=== PATIENT | female | born 1990 | race Caucasian/White ===

== ENCOUNTER 2019-10-09 07:56 | Outpatient (CLI) | payer BC, SELFPAY ==
--- NOTE | ~2019-10-09 | US_ITS ---
US right upper quadrant INDICATION: Epigastric pain PROCEDURE: Realtime right upper abdominal ultrasound. COMPARISON: No prior studies for comparison. FINDINGS: The pancreas is normal without focal mass or pancreatic ductal dilation. Liver echotexture is normal without focal mass or intrahepatic biliary dilatation. There is normal directional flow i n the portal vein. There is a 6 mm gallbladder polyp. Common bile duct measures 2.5 mm. No sonographic Srinivasan's sign. IMPRESSION: 1: Gallbladder polyp measuring 6 mm. Reviewed, dictated and finalized at location A.
== END 2019-10-09 07:57 | disposition home or self-care (01) ==
PROVIDERS: PCP Family Medicine; Visit Provider Family Medicine
DX: R10.9 Unspecified abdominal pain (principal); K82.4 Cholesterolosis of gallbladder
CPT/HCPCS: 76705

== ENCOUNTER 2019-10-29 01:56 | Outpatient (CLI) | payer BC, SELFPAY ==
[2019-10-29 21:41] LABS: SARS-CoV-2 RNA PCR Negative
== END 2019-10-29 01:57 | disposition home or self-care (01) ==
LOC: ANHCOVIDDT 01:56
PROVIDERS: PCP Family Medicine; Visit Provider Internal Medicine Gastroenterology
DX: Z01.818 Encounter for other preprocedural examination (principal); Z11.59 Encounter for screening for other viral diseases
CPT/HCPCS: 87635; C9803; U0003

== ENCOUNTER 2019-11-01 03:13 | Day surgery (SDC) | payer BC, SELFPAY ==
[2019-10-25 12:54] VITALS: BMI 24.5
[2019-11-01 10:47] VITALS: BP 102/59; PULSE 64; RESP 18; TEMP 36.8; O2SAT 100; BMI 25.2
[2019-11-01] MEDS: LACTATED RINGERS 1,000 ML 150 ML IV CONT (10:56)
--- NOTE | 2019-11-01 10:58 | SUR.PREOP ---
pt notified of delay in procedure start time.
--- NOTE | 2019-11-01 11:14 | WPDANESEPPF ---
Anes - Initial Pre Proc Eval Procedure: Operation Date: 11/01/19 11:30 Proposed Procedures p Esophagogastroduodenoscopy - Sixto Allison MD Date/Time: 11/01/19 11:14 Surgeon: Sixto Allison MD Pre Op Diagnosis: Abdominal Pain Patient Data Age: 29 Gender: F Height: 5 ft 2 in Weight: 62.5 kg Last Vital Signs Temp 36.8 C 11/01/19 10:47 Pulse 64 11/01/19 10:47 Resp 18 11/01/19 10:47 BP 102/59 L 11/01/19 10:47 Pulse Ox 100 11/01/19 10:47 Allergies Allergy/AdvReac Type Severity Reaction Status Date / Time No Known Allergies Allergy Verified 11/01/19 10:40 Home Medications Medication Instructions Recorded Confirmed Type No Home Medications 10/25/19 10/25/19 History Patient hx anesthesia problems: none Family hx anesthesia problems: none [facility] Past Medical History Medical History Bloating delivery delivered 2016 Dyspepsia Social History Social History Smoking status: Never smoker Alcohol intake: current Drinks per week: 1 Substance use: never Substance use type: does not use Anes - Eval Final PreProcedure Day of Procedure 11/01/19 11:14 Patient weight: normal Heart: regular rate and rhythm Lungs: clear to auscultation Airway: Mallampati scale class 1 Neurological: alert and oriented Last oral intake: >/= 8 hours ASA classification: I Emergent: no Anesthetic plan: proceed Anesthesia type and monitoring: general GIVS and standard monitoring Informed Consent: The patient's anesthetic plan and its attendant risks and benefits were discussed with the patient/family/POA. Questions were solicited and answers provided to the satisfaction of the patient/family/POA.
--- NOTE | 2019-11-01 11:48 | WPDHPUPDATE1 ---
History and Physical Update Update Date/Time: 11/01/19 11:48 History and Physical has been reviewed, including an updated exam of the patient. There are NO changes in the patient's condition. Risks, benefits, and alternatives have been discussed and questions answered. Patient agrees to proceed with procedure.
[2019-11-01] MEDS: BENZOCAINE (*SP) 60 ML SPRAY CAN (HURRICAINE) 1 SPRAY MUCOUS MEM (11:51)
[2019-11-01 12:01] VITALS: BP 101/56; PULSE 74; RESP 15; O2SAT 98
[2019-11-01 12:11] VITALS: BP 106/57; PULSE 74; RESP 15; O2SAT 98
[2019-11-01 12:21] VITALS: BP 108/74; PULSE 74; RESP 15; O2SAT 98
== END 2019-11-01 12:44 | disposition home or self-care (01) ==
PROVIDERS: PCP Family Medicine; Visit Provider Internal Medicine Gastroenterology
PROC: 0DJ08ZZ Inspection of Upper Intestinal Tract, Via Natural or Artificial Opening Endoscopic (ICD-10-PCS; CPT 43235; principal; 2019-11-01 11:30)
DX: R10.13 Epigastric pain (principal); R14.0 Abdominal distension (gaseous); R14.2 Eructation
CPT/HCPCS: 43239; 88305; J2704; J7120

== ENCOUNTER 2022-10-04 09:40 | Emergency (ER) | payer BC, SELFPAY ==
[2022-10-04 09:48] VITALS: BP 117/70; PULSE 90; RESP 14; TEMP 36.7; O2SAT 100
[2022-10-04 10:10] LABS: Basophils Absolute Auto 0.1 K/mm3 (0.0-0.1); Basophils Percent Auto 1.6 % (0.2-1.2); Eosinophils Percent Auto 0.5 % (0-4.4); Hematocrit 28.5 % (37.0-47.0); Hemoglobin 7.2 g/dL (12.0-15.0); Immature Granulocyte Absolute 0.01 K/mm3 (0.00-0.031); Immature Granulocyte Percent A 0.3 % (0-0.5); Immature Platelet Fraction Pct 5.6 % (0.9-11.2); Lymphocytes Percent Auto 25.9 % (18.3-44.2); Mean Corpuscular HGB Conc 25.3 g/dl (32-36); Mean Corpuscular Hemoglobin 15.7 pg (26-34); Mean Corpuscular Volume 62.2 fl (80-100); Mean Platelet Volume 10.4 fl (7.4-10.4); Monocytes Absolute Auto 0.5 K/mm3 (0.1-0.6); Neutrophils Absolute Auto 2.2 K/mm3 (1.3-6.7); Neutrophils Percent Auto 57.7 % (45.5-73.1); Platelet Count Result 273 k/mm3 (150-375); Red Blood Count 4.58 M/mm3 (4.2-5.4); Red Cell Distribution Width 18.7 % (11.5-14.5); White Blood Count 3.9 K/mm3 (4.5-10.0)
[2022-10-04 10:20] LABS: Prothrombin Time 13.3 Seconds (11.1-14.7)
--- NOTE | 2022-10-04 10:20 | ED.GENADULT ---
HPI - General Adult General Chief complaint: Recheck/Abnormal Lab/Rx Stated complaint: low hgb Time Seen by Provider: 10/04/22 09:45 History of Present Illness HPI narrative: 32-year-old female presented the emergency department for evaluation of anemia. Patient does have a prior work-up for this anemia, is thought to be due to her heavy menstrual cycle and patient is having follow-up with Dr. Silvia Mendiola. Patient had outpatient labs and was found to have a hemoglobin of 6.5. Patient is symptomatic and does have increased exertional fatigue and generalized weakness. Patient is no longer having active bleeding. Patient is scheduled to start oral control to help regulate her menstrual cycle. Related Data Home Medications Medication Instructions Recorded Confirmed vits 75-iron 28 mg-folic pkg PO 10/11/21 09/19/22 acid 800 mcg-omega-3 oral combo pack (One A Day Women's DHA) Allergies Allergy/AdvReac Type Severity Reaction Status Date / Time No Known Allergies Allergy Verified 10/04/22 10:01 Review of Systems Review of Systems: All systems reviewed & are unremarkable except as noted in HPI and below PMFSH Past Medical History Medical History (Updated 10/04/22 @ 14:34 by Parveen Kramer MD) Bloating delivery delivered 2016 Dyspepsia Social History Social History (Updated 09/19/22 @ 09:02 by Magaly Calhoun MA) Smoking status: Never smoker Alcohol intake: current Drinks per week: 1 Substance use: never Substance use type: does not use Lack of Transportation: No Lack of Food: Never True Current Housing: I Have Housing Concerned About Future Housing: No Difficulty Paying Gas/Electric Bills: No Difficulty Paying for Meds: No Currently Unemployed: No Education: Associate Degree Difficulty w/ Childcare or Family Care: No Living arrangements: with family 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 Gender identity (if verbalized by the patient): Female Sexual Orientation (if Verbalized by the Patient): Straight or Heterosexual Exam Narrative: APPEARANCE: Well appearing, no pain, no distress, well-nourished. HEAD: normocephalic, atraumatic. EYES: PERRLA/EOMI, conjunctivae clear. NOSE: Normal no drainage NECK: Supple. No adenopathy, no masses. RESPIRATORY: Airway patent, respirations nonlabored. Clear to auscultation bilaterally, no rales, rhonchi, wheezing. CARDIOVASCULAR: Regular rate and rhythm without murmurs rubs or gallops. ABDOMINAL: Soft, nontender, nondistended, normal bowel sounds MUSCULOSKELETAL: Moves all extremities. Strength/ROM intact, No edema, No calf tenderness. NEURO: Alert. Cranial nerves II through XII intact. Grossly intact SKIN: Warm, dry. Normal Color Course Course Emergency Course: 32-year-old female presented ED for evaluation of increased generalized weakness and anemia. Patient will be treated with 2 units of packed red blood cells. Patient was updated on the results of her labs and plan for treatment. Patient is being started on control by her TUBE CUTTER. Patient was well-appearing at time of discharge. Vital Signs Vital signs: Vital Signs Temperature 98.0 F 10/04/22 09:48 Pulse Rate 90 10/04/22 09:48 Respiratory Rate 14 10/04/22 09:48 Blood Pressure 117/70 10/04/22 09:48 Pulse Oximetry 100 10/04/22 09:48 Oxygen Delivery Room Air 10/04/22 09:48 Temperature 98.6 F 10/04/22 14:53 Pulse Rate 76 10/04/22 14:53 Respiratory Rate 14 10/04/22 14:53 Blood Pressure 103/67 10/04/22 14:53 Pulse Oximetry 100 10/04/22 14:53 Oxygen Delivery Room Air 10/04/22 09:48 Medical Decision Making Vital Signs Vital Signs: Vital Signs Temperature 98.0 F 10/04/22 09:48 Pulse Rate 90 10/04/22 09:48 Respiratory Rate 14 10/04/22 09:48 Blood Pressure 117/70 10/04/22 09:48 Pulse Oximetry 100
[2022-10-04 10:21] LABS: Partial Thromboplastin Time 30.8 SECONDS (22.3-36.8)
[2022-10-04 10:25] LABS: Alanine Aminotransferase 15 U/L (6-35); Alkaline Phosphatase 63 U/L (38-126); Anion Gap 8 mmol/L (8-16); Aspartate Amino Transferase 22 U/L (14-36); Bilirubin,Total 0.5 mg/dL (0.2-1.3); Blood Urea Nitrogen 9 mg/dL (7-17); Calcium 9.1 mg/dL (8.4-10.2); Carbon Dioxide 26 mmol/L (22-30); Chloride 105 mmol/L (98-107); Estimated CRCL calculation 106 ml/min; Estimated Glomerular Filt Rate > 60; Glucose 94 mg/dL (65-110); Potassium 3.9 mmol/L (3.4-5.0); Sodium 139 mmol/L (137-145)
[2022-10-04 10:40] LABS: Anisocytosis 1+ (NORMAL); Hypochromasia 2+ (NORMAL); Microcytosis 2+ (NORMAL); Ovalocytes 1+ (NORMAL); Platelet Estimate Adequate (Adequate); Schistocytes None Seen (NORMAL)
[2022-10-04 12:34] VITALS: BP 103/63; PULSE 78; RESP 15; TEMP 36.9; O2SAT 100
[2022-10-04] MEDS: SODIUM CHLORIDE 0.9% IV 250 ML 30 ML IV CONT (12:35)
[2022-10-04 12:50] VITALS: BP 110/70; PULSE 78; RESP 14; TEMP 36.7; O2SAT 100
[2022-10-04 13:54] VITALS: BP 110/71; PULSE 91; RESP 17; TEMP 36.9; O2SAT 100
[2022-10-04 14:09] VITALS: BP 104/57; PULSE 73; RESP 15; TEMP 37; O2SAT 100
[2022-10-04 14:53] VITALS: BP 103/67; PULSE 76; RESP 14; TEMP 37; O2SAT 100
== END 2022-10-04 15:22 | disposition home or self-care (01) ==
PROVIDERS: Emergency Provider Emergency Medicine; PCP Family Medicine
DX: D64.9 Anemia, unspecified (principal)
CPT/HCPCS: 36415; 36430; 80053; 85025; 85055; 85610; 85730; 86850; 86900; 86901; 86923; 96360; 96361; 99285; J7050; P9016

== ENCOUNTER 2022-10-05 12:46 | Emergency (ER) | payer BC, SELFPAY ==
[2022-10-05 13:04] VITALS: BP 118/63; PULSE 70; RESP 18; TEMP 36.6; O2SAT 100
[2022-10-05 13:29] LABS: Basophils Absolute Auto 0.1 K/mm3 (0.0-0.1); Basophils Percent Auto 1.1 % (0.2-1.2); Eosinophils Absolute Auto 0.1 K/mm3 (0-0.3); Eosinophils Percent Auto 1.5 % (0-4.4); Hematocrit 35.3 % (37.0-47.0); Immature Platelet Fraction Pct 5.8 % (0.9-11.2); Lymphocytes Absolute Auto 1.65 K/mm3 (0.9-3.2); Lymphocytes Percent Auto 30.3 % (18.3-44.2); Mean Corpuscular HGB Conc 28.3 g/dl (32-36); Mean Corpuscular Hemoglobin 19.2 pg (26-34); Mean Corpuscular Volume 67.8 fl (80-100); Mean Platelet Volume 10.4 fl (7.4-10.4); Monocytes Absolute Auto 0.6 K/mm3 (0.1-0.6); Monocytes Percent Auto 10.7 % (2.6-8.5); Neutrophils Absolute Auto 3.1 K/mm3 (1.3-6.7); Neutrophils Percent Auto 56.4 % (45.5-73.1); Platelet Count Result 247 k/mm3 (150-375); Red Blood Count 5.21 M/mm3 (4.2-5.4); Red Cell Distribution Width 23.5 % (11.5-14.5); White Blood Count 5.4 K/mm3 (4.5-10.0)
[2022-10-05 13:43] LABS: Alanine Aminotransferase 13 U/L (6-35); Albumin Level 4.5 g/dL (3.5-5.1); Alkaline Phosphatase 58 U/L (38-126); Anion Gap 8 mmol/L (8-16); Aspartate Amino Transferase 18 U/L (14-36); Bilirubin,Total 0.4 mg/dL (0.2-1.3); Blood Urea Nitrogen 10 mg/dL (7-17); Calcium 8.9 mg/dL (8.4-10.2); Carbon Dioxide 24 mmol/L (22-30); Chloride 107 mmol/L (98-107); Estimated CRCL calculation 106 ml/min; Estimated Glomerular Filt Rate > 60; Glucose 103 mg/dL (65-110); Lipase 45 U/L (23-300); Potassium 3.8 mmol/L (3.4-5.0); Sodium 139 mmol/L (137-145)
[2022-10-05 13:45] LABS: Anisocytosis 3+ (NORMAL); Hypochromasia 1+ (NORMAL); Microcytosis 1+ (NORMAL); Platelet Estimate Adequate (Adequate); Schistocytes None Seen (NORMAL)
[2022-10-05 14:32] LABS: Creatine Kinase 45 U/L (30-135)
--- NOTE | 2022-10-05 15:49 | ED.ABDPAIN ---
HPI - Abdominal Pain General Chief Complaint: Abdominal Pain Stated Complaint: abd pain Time Seen by Provider: 10/05/22 15:33 History of Present Illness HPI narrative: Patient is a 32-year-old female here for evaluation of cramping in her muscles x4 hours. Patient states that she woke up with a cramping sensation concentrated in her abs and low back. She denies any vigorous exercise recently, however she was in the ER yesterday and received 2 units of blood for a low hemoglobin. She has had no fevers, shortness of breath, leg swelling or redness, nausea or vomiting, diarrhea or constipation. Related Data Home Medications Medication Instructions Recorded Confirmed vits 75-iron 28 mg-folic pkg PO 10/11/21 09/19/22 acid 800 mcg-omega-3 oral combo pack (One A Day Women's DHA) Allergies Allergy/AdvReac Type Severity Reaction Status Date / Time No Known Allergies Allergy Verified 10/04/22 10:01 Review of Systems Review of Systems: Gen.: Denies fevers or chills Eyes: Denies eye pain or visual change ENT: Denies congestion Respiratory: Denies shortness of breath or cough CV: Denies chest pain or palpitations GI: Denies abdominal pain nausea, emesis or diarrhea denies burning, urgency, frequency or hematuria Musculoskeletal: Reports muscle pain Neuro: Denies numbness, tingling, weakness or focal weakness Skin: Denies rash Except as documented, all other systems reviewed and negative [facility] Past Medical History Medical History Bloating delivery delivered 2016 Dyspepsia Social History Social History (Updated 09/19/22 @ 09:02 by Magaly Calhoun MA) Smoking status: Never smoker Alcohol intake: current Drinks per week: 1 Substance use: never Substance use type: does not use Lack of Transportation: No Lack of Food: Never True Current Housing: I Have Housing Concerned About Future Housing: No Difficulty Paying Gas/Electric Bills: No Difficulty Paying for Meds: No Currently Unemployed: No Education: Associate Degree Difficulty w/ Childcare or Family Care: No Living arrangements: with family 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 CARDIOVASCULAR: Regular rate and rhythm without murmurs rubs or gallops. ABDOMINAL: Soft, nontender, nondistended, no rebound or guarding MUSCULOSKELETAl: Moves all extremities. No clubbing, cyanosis or edema. NEURO: Awake and alert. Following commands, speech normal, no focal deficits SKIN:: Warm, dry. No rashes lesions or abrasions PSYCHIATRIC: Normal affect/mood, Course Vital Signs Vital signs: Vital Signs Temperature 97.9 F 10/05/22 13:04 Pulse Rate 70 10/05/22 13:04 Respiratory Rate 18 10/05/22 13:04 Blood Pressure 118/63 10/05/22 13:04 Pulse Oximetry 100 10/05/22 13:04 Oxygen Delivery Room Air 10/05/22 13:04 Temperature 97.9 F 10/05/22 13:04 Pulse Rate 75 10/05/22 15:55 Respiratory Rate 18 10/05/22 15:55 Blood Pressure 116/75 10/05/22 15:55 Pulse Oximetry 100 10/05/22 15:55 Oxygen Delivery Room Air 10/05/22 13:04 MDM - Abdominal Pain MDM Narrative Medical decision making narrative: 32-year-old female here for evaluation of diffuse muscle cramping after receiving 2 units of blood 36 hours ago for low hemoglobin. Patient not actively bleeding, no signs of transfusion reaction given lack of fever, respiratory distress, rash, presentation not necessarily consistent with reaction.
[2022-10-05 15:53] LABS: Appearance Urine Clear (Clear); Bacteria Urine None Seen /hpf; Bilirubin Urine Negative (Negative); Blood Urine Negative (Negative); Color Urine Yellow (Yellow); Glucose Urine UA Negative (Negative); Ketones Urine Negative (Negative); Leukocyte Esterase Ur 2+ LEU/UL (Negative); Nitrate Urine Negative (Negative); Non Pathogenic Casts 0-2; Protein Urine Negative (Negative); RBC Urine 0-2 /hpf (0-2); Specific Grav Ur 1.015 (1.001-1.035); Squamous Epithelial Cell Urine Few /hpf (Few); pH Urine 8.5 (5.0-9.0)
[2022-10-05] MEDS: IBUPROFEN 600 MG TABLET PO (15:53)
[2022-10-05] MEDS: ACETAMINOPHEN 325 MG TABLET 650 MG PO (15:53)
[2022-10-05 15:55] VITALS: BP 116/75; PULSE 75; RESP 18; O2SAT 100
[2022-10-05 16:07] LABS: Add Urine Microscopic? YES
== END 2022-10-05 17:23 | disposition home or self-care (01) ==
PROVIDERS: Emergency Medicine; Emergency Provider Physician Assistant; PCP Family Medicine
DX: R25.2 Cramp and spasm (principal)
CPT/HCPCS: 36415; 80053; 81001; 81025; 82550; 83690; 83735; 85025; 85055; 87077; 87086; 87088; 99283; A9270

== ENCOUNTER 2023-07-21 09:05 | Emergency (ER) | payer BC, SELFPAY ==
--- NOTE | ~2023-07-21 | CT_ITS ---
EXAMINATION: CT abdomen pelvis w con DATE: 07/21/2023 11:58 INDICATION: Right abdominal pain. Urinary symptoms. TECHNIQUE: Computed tomography (CT) of the abdomen and pelvis was performed with 100 mL Omnipaque 350 intravenous contrast. Automated exposure control and iterative reconstruction technique were employe d. The dose-length product was 340.22 mGy-cm. COMPARISON: None. FINDINGS: The visualized portions of the lung bases are clear without pneumonia or pleural effusion. The heart size is normal. No pericardial effusion. The liver, gallbladder, spleen, pancreas, adrenal glands, and kidneys are normal. There is urothelial thickening and enhancement in the renal pelvises, consistent with pyelitis. There are no dilated loops of bowel. The appendix is normal. There are no pathologically enlarged lymph nodes. There is no free intraperitoneal fluid. There are benign bone is lands in the pelvis. IMPRESSION: 1. Bilateral pyelitis. Reviewed, dictated and finalized at location A. IMPRESSION: 1. Bilateral pyelitis.
[2023-07-21 09:20] VITALS: BP 115/85; PULSE 78; RESP 16; TEMP 36.8; O2SAT 100
--- NOTE | 2023-07-21 09:38 | ED.FEMALEGU ---
HPI - Female Genitourinary General Chief complaint: Urogenital-Female Stated complaint: R flank pain Time Seen by Provider: 07/21/23 09:37 Source: patient Mode of arrival: ambulatory Limitations: no limitations History of Present Illness HPI Narrative: Bonny is a 32-year-old female patient presenting to the ER today with complaints burning, frequency, and urgency with urination over the past week. Has been trying to flush her kidneys to get rid of the infection. Reports she has recently started her period and is also having some cramping. This morning she developed a right flank pain and this prompted her to come into the emergency room. Rates her pain currently a 10/27. Related Data Allergies Allergy/AdvReac Type Severity Reaction Status Date / Time No Known Allergies Allergy Verified 04/03/23 11:03 Review of Systems Review of Systems: Pertinent positives per HPI. Patient denies any fever, chills, rash, headache, visual changes, dizziness, cough, runny nose, sore throat, shortness of breath, chest pain, palpitations, nausea, vomiting, diarrhea, constipation. PMFSH Past Medical History Medical History (Updated 07/21/23 @ 12:56 by Zana Patel APRN) Bloating delivery delivered 2016 Dyspepsia Social History Social History Smoking status: Never smoker Second hand tobacco smoke exposure: No Alcohol intake: current Drinks per week: 1 Substance use: never Substance use type: does not use Lack of Transportation: No Lack of Food: Never True Current Housing: I Have Housing Concerned About Future Housing: No Difficulty Paying Gas/Electric Bills: No Difficulty Paying for Meds: No Currently Unemployed: No Education: Associate Degree Difficulty w/ Childcare or Family Care: No Living arrangements: with family 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 There is no relevant family history pertinent to the patient complaint. Exam Narrative: General: Well-developed, well nourished, in no apparent distress. Head: Normocephalic, atraumatic. Cardio: Regular rate and rhythm, s1 and s2 normal, no murmur appreciated. Resp: Clear to auscultation bilaterally, no rhonchi, rales, wheezing or rubs. Abdomen: Soft, pliable, bowel sounds present in all quadrants,tender to palpation over the lower abdomen, no organomegly, positive right CVAT tenderness. Course Course Emergency Course: Portions of this record may have been created with voice recognition software. Vital Signs Vital signs: Vital Signs Temperature 36.8 C 07/21/23 09:20 Pulse Rate 78 07/21/23 09:20 Respiratory Rate 16 07/21/23 09:20 Blood Pressure 115/85 07/21/23 09:20 Pulse Oximetry 100 07/21/23 09:20 Oxygen Delivery Room Air 07/21/23 09:20 Temperature 36.8 C 07/21/23 09:20 Pulse Rate 78 07/21/23 13:04 Respiratory Rate 16 07/21/23 13:04 Blood Pressure 122/84 07/21/23 13:04 Pulse Oximetry 99 07/21/23 13:04 Oxygen Delivery Room Air 07/21/23 09:20 Vital signs reviewed MDM - Female Genitourinary MDM Narrative Medical decision making narrative: At the time of visit patient is resting comfortably on the exam table. Patient appears to be nontoxic. Labs: CBC shows white blood cell count of 6.1, H and H is 16.1 and 40.7, platelet count 307, chemistry level shows sodium of 137, potassium of 4.5, chloride 106, CO2 25, BUN of 12, grand 0.5, GFR is greater than 60 liver function test within normal limits, normal lipase of 41, urinalysis shows 3+
[2023-07-21 10:11] LABS: Basophils Percent Auto 0.7 % (0.2-1.2); Eosinophils Absolute Auto 0.1 K/mm3 (0-0.3); Eosinophils Percent Auto 1.2 % (0-4.4); Hematocrit 48.7 % (37.0-47.0); Hemoglobin 16.1 g/dL (12.0-15.0); Immature Granulocyte Absolute 0.01 K/mm3 (0.00-0.031); Immature Granulocyte Percent A 0.2 % (0-0.5); Lymphocytes Absolute Auto 1.45 K/mm3 (0.9-3.2); Mean Corpuscular HGB Conc 33.1 g/dl (32-36); Mean Corpuscular Hemoglobin 29.9 pg (26-34); Mean Corpuscular Volume 90.5 fl (80-100); Mean Platelet Volume 10.8 fl (7.4-10.4); Monocytes Absolute Auto 0.4 K/mm3 (0.1-0.6); Monocytes Percent Auto 7.3 % (2.6-8.5); Neutrophils Percent Auto 66.6 % (45.5-73.1); Platelet Count Result 307 k/mm3 (150-375); Red Blood Count 5.38 M/mm3 (4.2-5.4); Red Cell Distribution Width 12.7 % (11.5-14.5); White Blood Count 6.1 K/mm3 (4.5-10.0)
[2023-07-21 10:19] LABS: Appearance Urine Clear (Clear); Bacteria Urine 4+ /hpf; Bilirubin Urine Negative (Negative); Blood Urine 3+ (Negative); Color Urine Yellow (Yellow); Glucose Urine UA Negative (Negative); Ketones Urine Negative (Negative); Leukocyte Esterase Ur Trace LEU/UL (Negative); Nitrate Urine Negative (Negative); Non Pathogenic Casts 0-2; Protein Urine Negative (Negative); RBC Urine >100 /hpf (0-2); Specific Grav Ur 1.013 (1.001-1.035); Squamous Epithelial Cell Urine None Seen /hpf (Few); Urobilinogen Urine 0.2 mg/dL (<2.0); pH Urine 5.5 (5.0-9.0)
[2023-07-21 10:38] LABS: Add Urine Microscopic? YES
[2023-07-21 10:45] LABS: Alanine Aminotransferase 16 U/L (6-35); Albumin Level 4.6 g/dL (3.5-5.1); Alkaline Phosphatase 52 U/L (38-126); Anion Gap 6 mmol/L (4-12); Aspartate Amino Transferase 20 U/L (14-36); Bilirubin,Total 0.4 mg/dL (0.2-1.3); Blood Urea Nitrogen 12 mg/dL (7-17); Calcium 9.8 mg/dL (8.4-10.2); Carbon Dioxide 25 mmol/L (22-30); Chloride 106 mmol/L (98-107); Estimated CRCL calculation 122 ml/min; Estimated Glomerular Filt Rate > 60; Glucose 89 mg/dL (65-110); Lipase 41 U/L (23-300); Potassium 4.5 mmol/L (3.4-5.0); Sodium 137 mmol/L (137-145)
[2023-07-21 13:04] VITALS: BP 122/84; PULSE 78; RESP 16; O2SAT 99
== END 2023-07-21 13:05 | disposition home or self-care (01) ==
PROVIDERS: Emergency Medicine; Emergency Provider Nurse Practitioner Family; PCP Family Medicine
DX: N10 Acute pyelonephritis (principal); N30.01 Acute cystitis with hematuria
CPT/HCPCS: 36415; 74177; 80053; 81001; 81025; 83690; 85025; 87077; 87086; 87088; 87186; 99284; Q9967

== ENCOUNTER 2023-12-04 11:48 | Outpatient (CLI) | payer BC, SELFPAY ==
[2023-12-04 12:08] LABS: Basophils Percent Auto 0.7 % (0.2-1.2); Eosinophils Percent Auto 0.3 % (0-4.4); Hematocrit 43.8 % (37.0-47.0); Hemoglobin 14.6 g/dL (12.0-15.0); Immature Granulocyte Absolute 0.02 K/mm3 (0.00-0.031); Immature Granulocyte Percent A 0.3 % (0-0.5); Lymphocytes Absolute Auto 1.54 K/mm3 (0.9-3.2); Lymphocytes Percent Auto 26.5 % (18.3-44.2); Mean Corpuscular HGB Conc 33.3 g/dl (32-36); Mean Corpuscular Hemoglobin 30.1 pg (26-34); Mean Corpuscular Volume 90.3 fl (80-100); Mean Platelet Volume 11.1 fl (7.4-10.4); Monocytes Absolute Auto 0.4 K/mm3 (0.1-0.6); Monocytes Percent Auto 6.4 % (2.6-8.5); Neutrophils Absolute Auto 3.8 K/mm3 (1.3-6.7); Neutrophils Percent Auto 65.8 % (45.5-73.1); Platelet Count Result 237 k/mm3 (150-375); Red Blood Count 4.85 M/mm3 (4.2-5.4); Red Cell Distribution Width 12.2 % (11.5-14.5); White Blood Count 5.8 K/mm3 (4.5-10.0)
[2023-12-04 13:28] LABS: Alanine Aminotransferase 16 U/L (6-35); Albumin Level 4.4 g/dL (3.5-5.1); Alkaline Phosphatase 41 U/L (38-126); Anion Gap 11 mmol/L (4-12); Aspartate Amino Transferase 29 U/L (14-36); Bilirubin,Total 0.5 mg/dL (0.2-1.3); Blood Urea Nitrogen 10 mg/dL (7-17); Calcium 9.5 mg/dL (8.4-10.2); Carbon Dioxide 22 mmol/L (22-30); Chloride 105 mmol/L (98-107); Estimated Glomerular Filt Rate > 60; Glucose 80 mg/dL (65-110); Potassium 4.2 mmol/L (3.4-5.0); Sodium 138 mmol/L (137-145)
[2023-12-08 11:23] LABS: Erythropoietin (EPO) 3.2 mIU/mL (2.6-18.5)
[2023-12-10 23:03] LABS: Block/Specimen ID BLOOD; JAK2 V617F Mutation NOT DETECTED (NOT DETECTED); Specimen Source Blood
== END 2023-12-04 11:49 | disposition home or self-care (01) ==
LOC: ANHLAB 11:50
PROVIDERS: PCP Family Medicine; Visit Provider Internal Medicine Hematology & Oncology
DX: D75.1 Secondary polycythemia (principal)
CPT/HCPCS: 36415; 80053; 81270; 82668; 85025

== ENCOUNTER 2024-04-15 10:25 | Emergency (ER) | payer BC, SELFPAY ==
[2024-04-15 10:49] VITALS: BP 115/80; PULSE 95; RESP 16; TEMP 36.6; O2SAT 100
--- NOTE | 2024-04-15 11:38 | ED_ITS ---
HPI - Female Genitourinary General Chief complaint: Urogenital-Female Stated complaint: Sinus Infection/Uti Symptoms Time Seen by Provider: 04/15/24 11:20 Source: patient, RN notes reviewed and old records reviewed Mode of arrival: ambulatory Limitations: no limitations History of Present Illness HPI Narrative: 33 year old female who presents to [facility] care with complaints of sinus congestion and pressure in sinus area since with OTC medications helping. Patient reports that she has had burning with urination for the past 2- 3 days with suprapubic pressure. Patient reports no fevers chills or sweat, denies any nausea or vomiting. reports no concern for STD exposure. MD elicited complaint: UTI and other (sinus congestion and pressure) Onset (ago): day(s) (3) Location of symptoms: perineum and suprapubic Severity scale (1-10): 3 Vaginal discharge: none Vaginal bleeding: none Related Data Allergies Allergy/AdvReac Type Severity Reaction Status Date / Time No Known Allergies Allergy Verified 03/23/24 15:50 Review of Systems Review of Systems: CONSTITUTIONAL: Denies fever, chills, or sweats.some sinus congestion and sinus pressure CARDIOVASCULAR: Denies chest pain, palpitations, or edema. RESPIRATORY: Denies cough or dyspnea. GASTROINTESTINAL: Denies abdominal pain, nausea, vomiting, or diarrhea. GENITOURINARY: Reports dysuria, frequency, urgency. Denies flank pain or hematuria.states urine is cloudy SKIN: Denies rash or itching. MUSCULOSKELETAL: Denies back pain or myalgia. Denies CVA tenderness NEUROLOGIC: Denies headache All systems reviewed & are unremarkable except as noted in HPI and below [facility] Past Medical History Medical History Left lower quadrant pain Dyspepsia Bloating delivery delivered 2016 Surgical History Surgical History History of placement of ear tubes Social History Social History Smoking status: Never smoker Second hand tobacco smoke exposure: No Alcohol intake: current Drinks per week: 1 Substance use: never Substance use type: does not use Do You Feel Safe in your Home?: Yes Lack of Transportation: No Lack of Food: Never True Current Housing: Decline to Answer Concerned About Future Housing: Decline to Answer Difficulty Paying Gas/Electric Bills: Decline to Answer Difficulty Paying for Meds: Decline to Answer Currently Unemployed: Decline to Answer Education: Decline to Answer Difficulty w/ Childcare or Family Care: Decline to Answer Living arrangements: with family 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 Gender identity (if verbalized by the patient): Female Sexual Orientation (if Verbalized by the Patient): Straight or Heterosexual Spiritual care concerns: No Agree to blood products: Yes Comments At time of signature, agree with nursing past medical, surgical, social and family history. There is no relevant family history pertinent to the presenting complaint Exam Narrative: GENERAL: Well-appearing, well-nourished, and in no acute distress. HEAD: Normocephalic, atraumatic.sinus congestion with some sinus pressure, clear nasal drainage NECK: Supple.no lymphadenopathy CHEST: Clear to auscultation. No respiratory distress.SAO2 100% on room air HEART: Regular rate and rhythm. No murmur heard. Normal peripheral pulses. ABDOMEN: Soft, nontender, pressure in suprapubic area, nondistended, normal active bowel sounds. No CVA tenderness, burning with urination urine cloudy EXTREMITIES: Normal range of motion. No edema. SKIN: Warm, dry, no rash. NEURO: No focal deficits. Alert and oriented x3. Course Course Emergency Course: Patient is aware of diagnosis, understands and agrees to treatment plan.? Anticipatory guidance given.? Patient agrees to follow-up as directed and is aware of reasons to seek care at the emergency department. Portions of this record may have been created with voice recognition software Level of Care: Express Care Visit Vital Signs Vital signs: Vital Signs Temperature 36.6 C 04/15/24 10:49 Pulse Rate 95 04/15/24 10:49 Respiratory Rate 16 04/15/24 10:49 Blood Pressure 115/80 04/15/24 10:49 Pulse Oximetry 100 04/15/24 10:49 Temperature 36.6 C 04/15/24 10:49 Pulse Rate 95 04/15/24 10:49 Respiratory Rate 16 04/15/24 10:49 Blood Pressure 115/80 04/15/24 10:49 Pulse Oximetry 100 04/15/24 10:49 MDM - Female Genitourinary MDM Narrative Medical decision making narrative: Exam findings and UA show no acute concerns or changes; patient is non-toxic appearing and is in no distress.? Patient is appropriate for outpatient treatment and follow-up. Differential Diagnosis Differential diagnosis: Likely urinary tract infection, cystitis and other (dysuria, URI, sinus congestion and pressure) Lab Data Attestation: I reviewed the patient's lab results. Lab results narrative: see urine dip : urine cloudy, trace blood leukocytes 2+ Labs: Lab Results 04/15/24 Range/Units 10:50 POC Urine Color Yellow POC Urine Clarity Cloudy POC Urine pH 6.5 POC Ur Specif [place] 1.010 POC Urine Protein Negative (Negative) POC Ur Glucose (UA) Negative (Negative) POC Urine Ketones Negative (Negative) POC Urine Blood Trace (Negative) POC Urine Nitrite Negative (Negative) POC Urine Bilirubin Negative (Negative) POC Urine Urobilinogen 0.2 POC U Leukocyte Esteras 2+ (Negative) reviewed Critical Care Time Critical Care Time Critical Care Time: No Discharge Plan Discharge Clinical Impression: Sinus congestion UTI (urinary tract infection) Qualifiers: Urinary tract infection type: site unspecified Hematuria presence: with hematuria Qualified Code(s): N39.0 - Urinary tract infection, site not specified Patient Disposition: Home, Self-Care Condition: Stable Instructions: Antibiotic Form, Urinary Tract Infection in Women (ED) Additional Instructions: Increase fluids especially cranberry juice and water Avoid caffeine and carbonated beverages Antibiotic as directed Zyrtec Claritin or Marie daily may continue plain Sudafed Tylenol/ibuprofen for pain or fever Follow-up with her primary care provider if further problems or concerns Recheck if you have fever over 101, nausea and vomiting. urine culture will be sent if antibiotic ordered is not appropriate you will be ordered a different antibiotic If your symptoms persist, change or worsen significantly before you can contact your personal physician then please, without delay, go to the emergency department for further evaluation. Follow-up with PCP in 7-10 days or sooner if needed Patient Language: Romansh Prescriptions: New amoxicillin-pot clavulanate 875-125 mg tablet 1 tablet PO Q12H Qty: 20 0RF Rx Instructions: take with food recommend probiotic or eating Activa yogurt while taking this medication No Action albuterol sulfate 90 mcg/actuation HFA aerosol inhaler 1 inh inhalation Q4H PRN (Reason: shortness of breath or wheezing) Qty: 8.5 0RF estradiol 0.01 % (0.1 mg/gram) cream 1 g vaginal .COMPLEX Qty: 42.5 0RF Rx Instructions: 1 g vaginally every other day until laceration is healed ascorbic acid (vitamin C) 500 mg capsule 500 mg PO DAILY Qty: 90 3RF Follow-up/Referrals: Kendra Kirby MD [Primary Care Provider] - Time of Disposition: 11:48 Quality Farrukh Coma Scale Eyes: Open Verbal: Oriented and Alert Motor: Follows Commands Ken[place] Coma Total Score: 15
[2024-04-15 11:48] LABS: EDUAAPPEAR Cloudy; EDUABILI Negative (Negative); EDUABLOOD Trace (Negative); EDUACOLOR1 Yellow; EDUAGLUCOSE Negative (Negative); EDUAKETONE Negative (Negative); EDUALEUKO 2+ (Negative); EDUANITRATE Negative (Negative); EDUAPH 6.5; EDUAPROTEIN Negative (Negative); EDUAUROBILI 0.2
== END 2024-04-15 11:53 | disposition home or self-care (01) ==
PROVIDERS: Emergency Provider Registered Nurse; PCP Family Medicine
DX: R09.81 Nasal congestion (principal); N39.0 Urinary tract infection, site not specified
CPT/HCPCS: 81003; 87086; 99213; G0463

== ENCOUNTER 2024-05-07 10:47 | Outpatient (CLI) | payer BC, SELFPAY ==
[2024-05-07 11:31] LABS: Basophils Percent Auto 0.7 % (0.2-1.2); Eosinophils Absolute Auto 0.1 K/mm3 (0-0.3); Eosinophils Percent Auto 1.5 % (0-4.4); Hematocrit 36.6 % (37.0-47.0); Hemoglobin 11.4 g/dL (12.0-15.0); Immature Granulocyte Absolute 0.02 K/mm3 (0.00-0.031); Immature Granulocyte Percent A 0.3 % (0-0.5); Lymphocytes Absolute Auto 1.58 K/mm3 (0.9-3.2); Lymphocytes Percent Auto 27.2 % (18.3-44.2); Mean Corpuscular HGB Conc 31.1 g/dl (32-36); Mean Corpuscular Hemoglobin 26.6 pg (26-34); Mean Corpuscular Volume 85.5 fl (80-100); Mean Platelet Volume 11.1 fl (7.4-10.4); Monocytes Absolute Auto 0.4 K/mm3 (0.1-0.6); Monocytes Percent Auto 6.9 % (2.6-8.5); Neutrophils Absolute Auto 3.7 K/mm3 (1.3-6.7); Neutrophils Percent Auto 63.4 % (45.5-73.1); Platelet Count Result 396 k/mm3 (150-375); Red Blood Count 4.28 M/mm3 (4.2-5.4); Red Cell Distribution Width 11.7 % (11.5-14.5); White Blood Count 5.8 K/mm3 (4.5-10.0)
[2024-05-07 12:00] LABS: Iron 17 ug/dL (37-170)
[2024-05-07 12:11] LABS: Percent Iron Saturation 4 % (20-50)
[2024-05-07 12:36] LABS: Ferritin 3.81 ng/mL (6.24-137)
--- OUTSIDE RECORDS SUMMARY | 2024-05-12 08:52 | XMS_ITS | Clinical Summary ---
Author Organization [facility] Address [facility] [place] [address] Care Team Providers Care Claim Review Medical Director Name Role Phone Kendra Kirby MD Primary Care Provider [phone] Allergies No known active allergies Medications lidocaine 5 % gel Apply 1 Application topically every 4 (four) hours as needed (pain) 113 g 4 Active oxyCODONE (ROXICODONE) 5 mg immediate release tabletIndicatio ns:Pain Take 1 tablet (5 mg total) by mouth every 4 (four) hours as needed for pain 12 tablet 4 Active Encounters Date Type Department Care Team Description 03/17/2024 6:22 PM MUSIC VIDEO DIRECTOR - 03/17/2024 8:02 PM [facility] Emergency [facility] Emergency Department [address] [place] [address] Virginia Saldana MD Other specified trauma to perineum and vulva (CODE) (Primary Dx) Discharge Disposition: Discharge to home or self care from Last 3 Months Social History Tobacco Use Types Packs/Day Years Used Date Smoking Tobacco: Never Assessed Personal Safety Answer Date Recorded Have you ever been in or are you currently in a harmful physical or emotional relationship or is someone making you feel afraid or unsafe? Denies 03/17/2024 Comments Unknown Sex and Gender Information Value Date Recorded Sex Assigned at Not on file Legal Sex Female 6:06 PM MUSIC VIDEO DIRECTOR Gender Identity Not on file Sexual Orientation Not on file Last Filed Vital Signs Vital Sign Reading Time Taken Comments Blood Pressure 119/77 03/17/2024 7:59 PM MUSIC VIDEO DIRECTOR Pulse 96 03/17/2024 7:59 PM MUSIC VIDEO DIRECTOR Temperature 36.9 ??C (98.4 ??F) 03/17/2024 6:14 PM CS T Respiratory Rate 18 03/17/2024 7:59 PM MUSIC VIDEO DIRECTOR Oxygen Saturation 97% 03/17/2024 7:59 PM MUSIC VIDEO DIRECTOR Inhaled Oxygen Concentration - - Weight 69.8 kg (153 lb 14.1 oz) 03/17/2024 6:14 PM MUSIC VIDEO DIRECTOR Height 160 cm (5' 3 ) 03/17/2024 6:14 PM MUSIC VIDEO DIRECTOR Body Mass Index 27.26 03/17/2024 6:14 PM MUSIC VIDEO DIRECTOR Plan of Treatment Health Maintenance Due Date Last Done Comments Cervical Cancer Screening 1989 Depression Screening 1989 Hepatitis C Screening 1989 Varicella Vaccines (1 of 2 - 13+ 2-dose series) 2002 Hepatitis B Screening 09/05/2007 Regular Well Visit/Exam 18-64 09/05/2007 Influenza Vaccine (#1) 2023 DTaP/Tdap/Td Vaccine (2 - Td or Tdap) 10/08/2025 10/09/2015 HPV Vaccines Aged Out No longer eligi ble based on patient's age to complete this topic Pneumococcal vaccine <65 Aged Out No longer eligible based on patient's age to complete this topic Insurance [facility] ACCESS [employer] Member Subscriber Plan / Payer (Ef fective 2023-Present) Name:Bonny Arguello Relation to Subscriber:Spouse Name:Saundra Bishnu Lewis Date of :1989 Address: [facility] [place] [address] Payer ID:[id number] (NAIC) Type:[facility] Address: [facility] [id number] [id number] Care Teams Claim Review Medical Director Relationship Specialty Start Date End Date Kendra Kirby MD [address] [place] [address] PCP - General Family Medicine 03/17/24
--- OUTSIDE RECORDS SUMMARY | 2024-05-12 08:52 | XMS_ITS | Clinical Summary ---
Author Organization [facility] Anahy linares [facility] Address [address] [place] [address] Care Team Providers Care Press Supervisor Name Role Phone Unavailable Primary Care Provider Unavailabl e Allergies No known active allergies Medications OMEPRAZOLE ORAL Take by mouth. Active Active Problems No known active problems Encounters Date Type Department Care Team Description 05/12/2024 External Device Data STL ABSTRACTION Provider, Abstract 05/10/2024 External Device Data STL ABSTRACTION Provider, Abstract from Last 3 Months Family History Medical History Relation Name Comments No Known Problems Brother 1 No Known Problems Brother 2 No Known Problems Child No Known Problems Father Skin Cancer Mother Relation Name Status Comments Brother 1 Alive Brother 2 Alive Child Alive Father Unknown Mother Alive Social History Tobacco Use Types Packs/Day Years Used Date Smoking Tobacco: Never Tobacco Cessation:Counseling Given: Not Answered Alcohol Use Standard Drinks/Week Comments Yes 0 (1 standard drink = 0.6 oz pur e alcohol) socially Comments Unknown Sex and Gender Information Value Date Recorded Sex Assigned at Not on file Legal Sex Female 11:22 AM CDT Gender Identity Not on file Sexual Orientation Not on file Last Filed Vital Signs Vital Sign Reading Time Taken Comments Blood Pressure 115/75 01/01/2024 11:48 AM CDT Pulse 67 01/01/2024 11:48 AM CDT Temperature 36.6 ??C (97.8 ??F) 01/01/2024 11:48 AM C DT Respiratory Rate 16 01/01/2024 11:48 AM CDT Oxygen Saturation 98% 01/01/2024 11:48 AM CDT Inhaled Oxygen Concentration - - Weight 69.4 kg (153 lb) 01/01/2024 11:48 AM CDT Height 157.5 cm (5' 2 ) 12/01/2023 1:17 PM CDT Body Mass Index 27.98 12/01/2023 1:17 PM CDT Plan of Treatment Upcoming Encounters Date Type Department Care Team (Late st Contact Info) Description 07/01/2024 8:45 AM CDT Office Visit [facility] Oncology and Hematology - [place] [address] [facility] [address] [place] [address] Jesse Mariee MD [address] [facility] [address] [place] [address] Health Maintenance Due Date Last Done Comments DTAP/TDAP/TD VACCINES (1 - Tdap) 2008 HEPATITIS B VACCINES (1 of 3 - 19+ 3-dose series) 2008 CERVICAL CANCER SCREENING 09/05/2019 INFLUENZA VACCINE (#1) 2023 HPV VACCINES Aged Out No longer eligi ble based on patient's age to complete this topic PNEUMOCOCCAL VACCINE 0-64 YEARS Aged Out No longer eligible based on patient's age to complete this topic Insurance [facility] [employer] ACCESS CHOICE
--- OUTSIDE RECORDS SUMMARY | 2024-05-12 08:52 | XMS_ITS | Referral Summary ---
Author Organization [facility] Address [address] [place] [address] Care Team Providers Care Glove Presser Name Role Phone Kendra Kirby MD Primary Care Provider [phone] Encounters Date Type Department Care Team Description 03/17/2024 6:22 PM HITCHER - 03/17/2024 8:02 PM HITCHER Emergency [facility] Emergency Department [address] [place] [address] Virginia Saldana MD Other specified trauma to perineum and vulva (CODE) (Primary Dx) Discharge Disposition: Discharge to home or self care from Last 3 Months Allergies No known active allergies Medications lidocaine 5 % gel Apply 1 Application topically every 4 (four) hours as needed (pain) 113 g 4 Active oxyCODONE (ROXICODONE) 5 mg immediate release tabletIndicatio ns:Pain Take 1 tablet (5 mg total) by mouth every 4 (four) hours as needed for pain 12 tablet 4 Active Social History Tobacco Use Types Packs/Day Years [...] on file Legal Sex Female 6:06 PM HITCHER Gender Identity Not on file Sexual Orientation Not on file Last Filed Vital Signs Vital Sign Reading Time Taken Comments Blood Pressure 119/77 03/17/2024 7:59 PM HITCHER Pulse 96 03/17/2024 7:59 PM HITCHER Temperature 36.9 ??C (98.4 ??F) 03/17/2024 6:14 PM CS T Respiratory Rate 18 03/17/2024 7:59 PM HITCHER Oxygen Saturation 97% 03/17/2024 7:59 PM HITCHER Inhaled Oxygen Concentration - - Weight 69.8 kg (153 lb 14.1 oz) 03/17/2024 6:14 PM HITCHER Height 160 cm (5' 3 ) 03/17/2024 6:14 PM HITCHER Body Mass Index 27.26 03/17/2024 6:14 PM HITCHER Plan of Treatment Not on file Insurance [facility] ACCESS CHOICE Care Teams Glove Presser Relationship Specialty Start Date End Date Kendra Kirby MD [address] [place] [address] PCP - General Family Medicine 03/17/24
== END 2024-05-07 10:48 | disposition home or self-care (01) ==
PROVIDERS: PCP Family Medicine; Visit Provider Obstetrics & Gynecology
DX: N92.0 Excessive and frequent menstruation with regular cycle (principal)
CPT/HCPCS: 36415; 82728; 83540; 83550; 85025

== ENCOUNTER 2024-05-18 03:15 | Day surgery (SDC) | payer BC, SELFPAY ==
[2024-05-10 10:58] VITALS: BMI 26.2
--- OUTSIDE RECORDS SUMMARY | 2024-05-18 03:22 | XMS_ITS | Clinical Summary ---
Author Organization [facility] Anahy linares [facility] Address [address] [place] [address] Care Team Providers Care Cloth Mercerizer Operator Name Role Phone Unavailable Primary Care Provider [...] Description 07/01/2024 8:45 AM CDT Office Visit [facility] Oncology and Hematology - [place] [address] [facility] [address] [place] [address] Jesse Mariee MD [address] [facility] [address] [place] [address] Health Maintenance Due Date Last Done Comments DTAP/TDAP/TD VACCINES (1 - Tdap) 2008 HEPATITIS B VACCINES (1 of 3 - 19+ 3-dose series) 2008 CERVICAL CANCER SCREENING 09/05/2019 INFLUENZA VACCINE (#1) 2023 HPV VACCINES Aged Out No longer eligi ble based on patient's age to complete this topic Insurance [facility] BLUE ACCESS CHOICE
--- OUTSIDE RECORDS SUMMARY | 2024-05-18 03:22 | XMS_ITS | Clinical Summary ---
Author Organization [facility] Address [facility] [place] [address] Care Team Providers Care Design Chief Name Role Phone Kendra Kirby MD Primary Care Provider [phone] Allergies No known active allergies Medications lidocaine 5 % gel Apply 1 Application topically every 4 (four) hours as needed (pain) 113 g 4 Active oxyCODONE (ROXICODONE) 5 mg immediate release tabletIndicatio ns:Pain Take 1 tablet (5 mg total) by mouth every 4 (four) hours as needed for pain 12 tablet 4 Active Encounters Date Type Department Care Team Description 03/17/2024 6:22 PM WRAPPER CASHIER - 03/17/2024 8:02 PM [facility] Emergency [facility] Emergency Department [address] [place] [address] Virginia Saldana MD Other specified trauma [...] on file Legal Sex Female 6:06 PM WRAPPER CASHIER Gender Identity Not on file Sexual Orientation Not on file Last Filed Vital Signs Vital Sign Reading Time Taken Comments Blood Pressure 119/77 03/17/2024 7:59 PM WRAPPER CASHIER Pulse 96 03/17/2024 7:59 PM WRAPPER CASHIER Temperature 36.9 ??C (98.4 ??F) 03/17/2024 6:14 PM CS T Respiratory Rate 18 03/17/2024 7:59 PM WRAPPER CASHIER Oxygen Saturation 97% 03/17/2024 7:59 PM WRAPPER CASHIER Inhaled Oxygen Concentration - - Weight 69.8 kg (153 lb 14.1 oz) 03/17/2024 6:14 PM WRAPPER CASHIER Height 160 cm (5' 3 ) 03/17/2024 6:14 PM WRAPPER CASHIER Body Mass Index 27.26 03/17/2024 6:14 PM WRAPPER CASHIER Plan of Treatment Health Maintenance Due Date [...] patient's age to complete this topic Insurance [facility] ACCESS CHOICE Member Subscriber Plan / Payer (Ef fective 2023-Present) Name:Bonny Arguello Relation to Subscriber:Spouse Name:Saundra Bishnu Lewis Date of :1989 Address: [facility] [place] [address] Payer ID:[id number] (NAIC) Type:[facility] Address: [facility] [id number] [phone] Care Teams Design Chief Relationship Specialty Start Date End Date Kendra Kirby MD [address] [place] [address] PCP - General Family Medicine 03/17/24
--- OUTSIDE RECORDS SUMMARY | 2024-05-18 03:22 | XMS_ITS | Referral Summary ---
Author Organization [facility] Address [address] [place] [address] Care Team Providers Care Lip Cutter Name Role Phone Kendra Kirby MD Primary Care Provider [phone] Encounters Date Type Department Care Team Description 03/17/2024 6:22 PM ACCIDENT INVESTIGATOR - 03/17/2024 8:02 PM ACCIDENT INVESTIGATOR Emergency [facility] Emergency Department [address] [place] [address] Virginia Saldana MD Other specified trauma [...] on file Legal Sex Female 6:06 PM ACCIDENT INVESTIGATOR Gender Identity Not on file Sexual Orientation Not on file Last Filed Vital Signs Vital Sign Reading Time Taken Comments Blood Pressure 119/77 03/17/2024 7:59 PM ACCIDENT INVESTIGATOR Pulse 96 03/17/2024 7:59 PM ACCIDENT INVESTIGATOR Temperature 36.9 ??C (98.4 ??F) 03/17/2024 6:14 PM CS T Respiratory Rate 18 03/17/2024 7:59 PM ACCIDENT INVESTIGATOR Oxygen Saturation 97% 03/17/2024 7:59 PM ACCIDENT INVESTIGATOR Inhaled Oxygen Concentration - - Weight 69.8 kg (153 lb 14.1 oz) 03/17/2024 6:14 PM ACCIDENT INVESTIGATOR Height 160 cm (5' 3 ) 03/17/2024 6:14 PM ACCIDENT INVESTIGATOR Body Mass Index 27.26 03/17/2024 6:14 PM ACCIDENT INVESTIGATOR Plan of Treatment Not on file Insurance [facility] ACCESS CHOICE Care Teams Lip Cutter Relationship Specialty Start Date End Date Kendra Kirby MD [address] [place] [address] PCP - General Family Medicine 03/17/24
--- OUTSIDE RECORDS SUMMARY | 2024-05-18 03:22 | XMS_ITS | Data Portability ---
Author Organization [place] - Carla Steinberg [facility], [facility] Address [address] [place] [address] Assessment No assessment recorded. Plan of Treatment Reminders Order Date Submit Date Provider Last Modified By Organization Details Last Modified Time Details Appointments None recorded. Lab None recorded. Referral None recorded. Procedures None recorded. Surgeries None recorded. Imaging None recorded. Medication Orders Magic Mouthwash 2014 015 Not available 5 13:50:28 Tessalon Perles 100 mg capsule 2014 015 Not available 5 13:50:28 azithromyci n 250 mg tablet 2014 015 Not available 5 13:50:29 prednisone 5 mg tablets in a dose pack 2014 015 Not available 5 13:50:29 Patient TargetsNo targets recorded. Patient Instructions Encounter Date Encounter Id Patient Instructions Last Modified By Organization Details Last Modified Time 03/09/2015 [id number] salt water gargl es four times daily, motrin per trial court justice labeled directions. Not available 03/09/2015 13:50:29 wait and see on the antibiotics. start with the magic mouthwash and the tessalon perles for the ST and the cough. medication risk benefits and side effects discussed and questions answered. avoid carbohydrates and high salt diet to avoid weight gain and fluid retention and elevated blood pressure. monitor blood pressure while on medication. risk for osteopenia with residential use. Wait and see on the? ? ?steroids for at least 2 days; use a sinus rinse and take the cough rx. if it is not improving, start and complete the steroid taper. Not available 03/09/2015 13:50:29 Reason for Referral None Reported. Problems Name Problem SNOMED Code Status Onset Date Resolution Date Notes Provider Name and Address Organization Details Recorded Time Swallowing painful 07990304 Active Kenn Beasley MD [address], [place], [address], [place] [facility] 5 13:50:28 Problem Notes None recorded. Medical Equipment None Reported. Allergies Allergen ID Allergen Name Allergen Category Reaction Reaction Severity Criticality Documentation Date Start Date Code Code System Note Provider Name and Address Organization Details Recorded Time 71415 Duricef medicatio n Not available Not available Not available 03/09/2015 83695 6 RxNorm Reta Woodard [facility] 5 13:21:06 Medications Name Sig Start Date Stop Date Status Note LastModified by Organization Details LastModified Time Magic Mouthwash use one to two tablespoons to swish and spit up to four times daily prn sorethroat; 2014 active Not Available Not Available Not Avai lable azithromycin 250 mg tablet TAKE 2 TABLETS (500 MG) BY ORAL ROUTE ONCE DAILY FOR 1 DAY THEN 1 TABLET (250 MG) BY ORAL ROUTE ONCE DAILY FOR 4 DAYS 2014 active Not Available Not Available Not Avai lable Tessalon Perles 100 mg capsule Take 1 capsule 3 times a day by oral route. 2014 active Not Available Not Available Not Avai lable prednisone 5 mg tablets in a dose pack Take by oral route. Use as directed over 6 days 2014 active Not Available Not Available Not Avai lable Vitals Date Recorded Respiratory rate Oxygen saturation Oxygen saturation in Arterial blood by Pulse oximetry Body height Body mass index (BMI) Body temperature Body weight Heart rate Systolic blood pressure Diastolic blood pressure Provider Name and Address Organization Details Last Updated DateTime 5 16 /min 100 % 100 % 157.48 cm 26.4 kg/m2 98.2 [degF] 44737.4 21891 g 71 /min 117 mm[Hg] 58 mm[Hg] Reta Woodard [facility] 5 13:20:34 Social History Question Answer Notes LastModified by Organizat ion Details LastModified Time Tobacco Smoking Status Never Smoker Reta Woodard [facility] 03/09/2015 13:21:46 What Is Your Level Of Alcohol Consumption? Occasional Information not available 03/09/2015 Have You Directly Handled Bats, Rodents, Or Primates From Ebola Endemic Areas? No [email or web address] Information not available 03/09/2015 Have You Had Contact With Blood, Bodily Fluids, Or Human Remains Of A Patient Known To Have Or Suspected To Have Ebola Virus Disease? No [email or web address] Information not available 03/09/2015 Residence In/travel To An Area Where Ebola Virus Transmission Is Active (out Of The [facility] In The Past 21 Days). No [email or web address] Information not available 03/09/2015 Sex: Unknown Functional Status None recorded. Mental Status None recorded. Family History Nothing Reported Notes:none reported Medical History Condition Response Diabetes N Anxiety Disorder Y Seizures/Epilepsy N Hypertension N Gynecological HistoryNo gynecological history recorded. Obstetrics History GPAL:G 0 P 0 0 0 0 Past Encounters Encounter ID Performer Location Encounter Start Date Encounter Closed Date Diagnosis/Indication Diagnosis SNOMED-CT Code Diagnosis ICD10 Code Diagnosis Note [id number] Kenn Beasley MD [facility] [address] [place] [address] 03/09/2015 12:57:23 03/09/2015 14:10:19 Swallowing painful 23433734 R13.19 Health Concerns Section Related Observation LastModified by Organization Detai ls LastModified Time None Recorded Concern Status LastModified by Organization Details LastModified Time None Recorded Advance Directives Directive None Recorded Payers Encounter Date Sequence Insurance Name Policy Number Policy Fisher Covered Member ID Fisher Member ID Guarantor Name 03/09/2015 1 [facility] [id number] Bishnu Million [id number] Bonny M Million OBGyn Episode No OBEpisode recorded.
[2024-05-18 11:19] VITALS: BP 114/67; PULSE 90; RESP 16; TEMP 36.3; O2SAT 100
[2024-05-18 11:26] LABS: BEDSIDEPREGUCG Negative (Negative)
[2024-05-18] MEDS: LACTATED RINGERS 1,000 ML 150 ML IV CONT ×2 (11:28→13:11)
--- NOTE | 2024-05-18 12:29 | PM.IMHP ---
H&P: HPI History of Present Illness Date/Time: 05/18/24 12:29 Chief Complaint: Left lower quadrant pain-severe constipation Narrative: the patient has been suffering from constipation all her life, and is lately getting worse with pencil thin stools. She does have and left lower quadrant intermittent pain, sharp in nature, sometimes relieved by defecation. She is referred for colonoscopy which she never had before. Review of Systems Review of Systems: All systems reviewed & are unremarkable except as noted in HPI and below PMFSH Past Medical History Medical History Encounter for insertion of Mirena IUD 05/06/2024 Left lower quadrant pain Dyspepsia Bloating delivery delivered 2015 Surgical History Surgical History History of placement of ear tubes Social History Social History Smoking status: Never smoker Second hand tobacco smoke exposure: No Alcohol intake: current Drinks per week: 1 Substance use: never Substance use type: does not use Do You Feel Safe in your Home?: Yes Lack of Transportation: No Lack of Food: Never True Current Housing: Decline to Answer Concerned About Future Housing: Decline to Answer Difficulty Paying Gas/Electric Bills: Decline to Answer Difficulty Paying for Meds: Decline to Answer Currently Unemployed: Decline to Answer Education: Decline to Answer Difficulty w/ Childcare or Family Care: Decline to Answer Living arrangements: with family 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 Gender identity (if verbalized by the patient): Female Sexual Orientation (if Verbalized by the Patient): Straight or Heterosexual Spiritual care concerns: No Agree to blood products: Yes Meds Home Medications and Allergies Home Medications ?Medication ?Instructions ?Recorded ?Confirmed ?Type albuterol sulfate 90 mcg/actuation 1 inh inhalation Q4H PRN shortness 04/03/23 05/10/24 Rx aerosol inhaler of breath or wheezing #8.5 grams Allergies Allergy/AdvReac Type Severity Reaction Status Date / Time No Known Allergies Allergy Verified 05/18/24 11:17 Vital Signs Vital Signs - 24 hr 05/18/24 11:19 Temperature 97.4 F L Pulse Rate 90 Respiratory Rate 16 Blood Pressure 114/67 Pulse Oximetry 100 Oxygen Delivery Room Air Exam Const: General: cooperative and healthy appearing Resp: Effort & Inspection: normal respiratory effort and able to speak in complete sentences Auscultation: clear to auscultation bilaterally Cardio: Rate: regular rate Rhythm: regular rhythm GI: Inspection: normal to inspection GI Palp: No No hepatosplenomegaly present Auscultation: normal bowel sounds Rectal Exam: deferred Skin: General skin exam: normal color Psych: Appearance: grossly normal Mental Status: mental status grossly normal Assessment and Plan Assessment and plan (1) Left lower quadrant pain: Code(s): R10.32 - Left lower quadrant pain Status: Acute Assessment and Plan: The patient is deemed a good candidate for the procedure. Consent signed. Will proceed.
--- NOTE | 2024-05-18 12:43 | P.PNAN_ITS ---
Anes - Initial Pre Proc Eval Procedure: Operation Date: 05/18/24 12:30 Proposed Procedures p Colonoscopy - Angel Brown MD Date/Time: 05/18/24 12:43 Surgeon: Angel Brown MD Pre Op Diagnosis: left lower quadrant pain, constipation Patient Data Age: 33 Gender: F Height: 1.6 m Weight: 64.6 kg Last Vital Signs Temp 36.3 C L 05/18/24 11:19 Pulse 90 05/18/24 11:19 Resp 16 05/18/24 11:19 BP 114/67 05/18/24 11:19 Pulse Ox 100 05/18/24 11:19 O2 Del Method Room Air 05/18/24 11:19 Allergies Allergy/AdvReac Type Severity Reaction Status Date / Time No Known Allergies Allergy Verified 05/18/24 11:17 Home Medications ?Medication ?Instructions ?Recorded ?Confirmed ?Type albuterol sulfate 90 mcg/actuation 1 inh inhalation Q4H PRN shortness 04/03/23 05/10/24 Rx aerosol inhaler of breath or wheezing #8.5 grams Laboratory Tests 05/18/24 11:19 POC Urine HCG, Qual Negative (Negative) Patient hx anesthesia problems: none Family hx anesthesia problems: none Results Review: All pre-operative results and documents have been reviewed as part of the pre- operative evaluation. [facility] Past Medical History Medical History Encounter for insertion of Mirena IUD 05/06/2024 Left lower quadrant pain Dyspepsia Bloating delivery delivered 2015 Surgical History Surgical History History of placement of ear tubes Social History Social History Smoking status: Never smoker Second hand tobacco smoke exposure: No Alcohol intake: current Drinks per week: 1 Substance use: never Substance use type: does not use Do You Feel Safe in your Home?: Yes Lack of Transportation: No Lack of Food: Never True Current Housing: Decline to Answer Concerned About Future Housing: Decline to Answer Difficulty Paying Gas/Electric Bills: Decline to Answer Difficulty Paying for Meds: Decline to Answer Currently Unemployed: Decline to Answer Education: Decline to Answer Difficulty w/ Childcare or Family Care: Decline to Answer Living arrangements: with family 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 Gender identity (if verbalized by the patient): Female Sexual Orientation (if Verbalized by the Patient): Straight or Heterosexual Spiritual care concerns: No Agree to blood products: Yes Anes - Eval Final PreProcedure Day of Procedure 05/18/24 12:43 Patient weight: normal Heart: regular rate and rhythm Lungs: clear to auscultation Airway: Mallampati scale class II Neurological: alert and oriented Last oral intake: >/= 8 hours ASA classification: II Emergent: no Anesthetic plan: proceed Anesthesia type and monitoring: general GIVS and standard monitoring Results Review: All pre-operative results and documents have been reviewed as part of the pre- operative evaluation. Informed Consent: The patient's anesthetic plan and its attendant risks and benefits were discussed with the patient/family/POA. Questions were solicited and answers provided to the satisfaction of the patient/family/POA.
[2024-05-18 13:12] VITALS: BP 101/52; PULSE 88; RESP 19; O2SAT 100
[2024-05-18 13:22] VITALS: BP 105/63; PULSE 72; RESP 23; O2SAT 100
[2024-05-18 13:32] VITALS: BP 107/69; PULSE 71; RESP 20; O2SAT 100
== END 2024-05-18 13:43 | disposition home or self-care (01) ==
PROVIDERS: Anesthesiology; PCP Family Medicine; Referring Provider Nurse Practitioner Family; Visit Provider Internal Medicine Gastroenterology
PROC: 0DJD8ZZ Inspection of Lower Intestinal Tract, Via Natural or Artificial Opening Endoscopic (ICD-10-PCS; CPT 45378; principal; 2024-05-18 12:30)
DX: K62.1 Rectal polyp (principal); Z79.51 Long term (current) use of inhaled steroids; Z98.890 Other specified postprocedural states
CPT/HCPCS: 45385; 88305; J2003; J2704; J7120

== ENCOUNTER 2024-06-09 14:28 | Emergency (ER) | payer BC, SELFPAY ==
--- NOTE | ~2024-06-09 | CT_ITS ---
EXAMINATION: CT abdomen pelvis w con DATE: 06/09/2024 20:17 INDICATION: Left lower quadrant abdominal pain. TECHNIQUE: Computed tomography (CT) of the abdomen and pelvis was performed with 100 mL Omnipaque 350 intravenous contrast. Automated exposure control and iterative reconstruction technique were employe d. The dose-length product was 299.60 mGy-cm. COMPARISON: CT abdomen and pelvis 07/21/2023 FINDINGS: The visualized portions of lung bases are clear without pneumonia or pleural effusion. The heart size is normal. No pericardial effusion. The liver, gallbladder, spleen, pancreas, adrenal glan ds, and kidneys are normal. There is an intrauterine device in expected position. There are no dilate d loops of bowel. The appendix is normal. There are no pathologically enlarged lymph nodes. There is no free intraperitoneal fluid. There is mild lumbar spondylosis. IMPRESSION: 1. No etiology for the patient's symptoms. Reviewed, dictated and finalized at location [facility]
--- OUTSIDE RECORDS SUMMARY | 2024-06-09 14:32 | XMS_ITS | Clinical Summary ---
Author Organization [facility] Address [facility] [place] [address] Care Team Providers Care Baggageman Name Role Phone Kendra Kirby MD Primary Care Provider [phone] Allergies No known active allergies Medications lidocaine 5 % gel Apply 1 Application topically every 4 (four) hours as needed (pain) 113 g 4 Active oxyCODONE (ROXICODONE) 5 mg immediate release tabletIndicatio ns:Pain Take 1 tablet (5 mg total) by mouth every 4 (four) hours as needed for pain 12 tablet 4 Active Encounters Date Type Department Care Team Description 03/17/2024 6:22 PM AEMT - 03/17/2024 8:02 PM [facility] Emergency [facility] Emergency Department [address] [place] [address] Virginia Saldana MD Other specified trauma [...] on file Legal Sex Female 6:06 PM AEMT Gender Identity Not on file Sexual Orientation Not on file Last Filed Vital Signs Vital Sign Reading Time Taken Comments Blood Pressure 119/77 03/17/2024 7:59 PM AEMT Pulse 96 03/17/2024 7:59 PM AEMT Temperature 36.9 C (98.4 F) 03/17/2024 6:14 PM AEMT Respiratory Rate 18 03/17/2024 7:59 PM AEMT Oxygen Saturation 97% 03/17/2024 7:59 PM AEMT Inhaled Oxygen Concentration - - Weight 69.8 kg (153 lb 14.1 oz) 03/17/2024 6:14 PM AEMT Height 160 cm (5' 3 ) 03/17/2024 6:14 PM AEMT Body Mass Index 27.26 03/17/2024 6:14 PM AEMT Plan of Treatment Health Maintenance Due Date [...] patient's age to complete this topic Insurance [facility] ACCESS CHOICE Member Subscriber Plan / Payer (Ef fective 2023-Present) Name:Bonny Arguello Relation to Subscriber:Spouse Name:Bishnu Arguello Date of :1989 Address: [address] [place] [address] Payer ID:[id number] (NAIC) Type: ALLIANCE Address: [facility] [id number] [id number] Care Teams Baggageman Relationship Specialty Start Date End Date Kendra Kirby MD [address] [place] [address] PCP - General Family Medicine 03/17/24
--- OUTSIDE RECORDS SUMMARY | 2024-06-09 14:32 | XMS_ITS | Clinical Summary ---
Author Organization [facility] Anahy linares [facility] Address [address] [address] Care Team Providers Care Property Management Bookkeeper Name Role Phone Unavailable Primary Care Provider Unavailabl e Allergies No known active allergies Medications OMEPRAZOLE ORAL Take by mouth. Active Active Problems No known active problems Encounters Date Type Department Care Team Description 06/07/2024 External Device Data STL ABSTRACTION Provider, Abstract 05/12/2024 External Device Data STL ABSTRACTION Provider, [...] 67 01/01/2024 11:48 AM CDT Temperature 36.6 C (97.8 F) 01/01/2024 11:48 AM CDT Respiratory Rate 16 01/01/2024 11:48 AM CDT [...] CDT Office Visit [facility] Oncology and Hematology - [place] [address] [facility] [address] [place] [address] Jesse Mariee MD [address] [facility] [address] [place] [address] Health Maintenance Due Date Last Done Comments DTAP/TDAP/TD VACCINES (1 - Tdap) 2008 HEPATITIS B VACCINES (1 of 3 - 19+ 3-dose series) 2008 CERVICAL CANCER SCREENING 09/05/2019 INFLUENZA VACCINE (#1) 2023 HPV VACCINES Aged Out No longer eligi ble based on patient's age to complete this topic Insurance [facility] ACCESS CHOICE
--- OUTSIDE RECORDS SUMMARY | 2024-06-09 14:32 | XMS_ITS | Encounter Summary ---
Author Organization [facility] Address [address] [place] [address] Care Team Providers Care Network Professional Name Role Phone Unavailable Primary Care Provider Unavailabl e Encounter Details Date Type Department Care Team (Late st Contact Info) Description 06/07/2024 External Device Data [facility] ABSTRACTION Provider, Abstract NO ADDRESS ON FILE Social History Tobacco Use Types Packs/Day Years Used Date Smoking Tobacco: Never Alcohol Use Standard Drinks/Week Comments Yes 0 (1 standard drink = 0.6 oz pur e alcohol) socially Comments Unknown Sex and Gender Information Value Date Recorded Sex Assigned at Not on file Legal Sex Female 11:22 AM CDT Gender Identity Not on file Sexual Orientation Not on file documented as of this encounter Plan of Treatment Upcoming Encounters Date Type Department Care Team (Late st Contact Info) Description 07/01/2024 8:45 AM CDT Office Visit [facility] Oncology and Hematology - [address] [facility] [address] [place] [address] Jesse Mariee MD [address] [facility] [address] [place] [address] documented as of this encounter Visit Diagnoses Not on filedocumented in this encounter
--- OUTSIDE RECORDS SUMMARY | 2024-06-09 14:32 | XMS_ITS | Referral Summary ---
Author Organization [facility] Address [address] [place] [address] Care Team Providers Care Kaiako Kura [place] Maori Name Role Phone Kendra Kirby MD Primary Care Provider [phone] Encounters Date Type Department Care Team Description 03/17/2024 6:22 PM ORGANIZATIONAL PSYCHOLOGIST - 03/17/2024 8:02 PM ORGANIZATIONAL PSYCHOLOGIST Emergency [facility] Emergency Department [address] [place] [address] Virginia Saldana MD Other specified trauma [...] on file Legal Sex Female 6:06 PM ORGANIZATIONAL PSYCHOLOGIST Gender Identity Not on file Sexual Orientation Not on file Last Filed Vital Signs Vital Sign Reading Time Taken Comments Blood Pressure 119/77 03/17/2024 7:59 PM ORGANIZATIONAL PSYCHOLOGIST Pulse 96 03/17/2024 7:59 PM ORGANIZATIONAL PSYCHOLOGIST Temperature 36.9 C (98.4 F) 03/17/2024 6:14 PM ORGANIZATIONAL PSYCHOLOGIST Respiratory Rate 18 03/17/2024 7:59 PM ORGANIZATIONAL PSYCHOLOGIST Oxygen Saturation 97% 03/17/2024 7:59 PM ORGANIZATIONAL PSYCHOLOGIST Inhaled Oxygen Concentration - - Weight 69.8 kg (153 lb 14.1 oz) 03/17/2024 6:14 PM ORGANIZATIONAL PSYCHOLOGIST Height 160 cm (5' 3 ) 03/17/2024 6:14 PM ORGANIZATIONAL PSYCHOLOGIST Body Mass Index 27.26 03/17/2024 6:14 PM ORGANIZATIONAL PSYCHOLOGIST Plan of Treatment Not on file Insurance [facility] ACCESS CHOICE Member Subscriber Plan / Payer (Ef fective 2023-Present) Name:Bonny Arguello Relation to Subscriber:Spouse Name:Bishnu Arguello Date of :1989 Address: [facility] [place] [address] Payer ID:[id number] (NAIC) Type: LIZZIE Address: [facility] [address] [id number] Care Teams Kaiako Kura [place] Maori Relationship Specialty Start Date End Date Kendra Kirby MD [address] [place] [address] PCP - General Family Medicine 03/17/24
[2024-06-09 14:57] VITALS: BP 111/73; PULSE 83; RESP 16; TEMP 36.9; O2SAT 100
--- NOTE | 2024-06-09 15:44 | ED.ABDPAIN ---
HPI - Abdominal Pain General Chief Complaint: Abdominal Pain Stated Complaint: concern for left inguinal hernia Time Seen by Provider: 06/09/24 15:44 Focused HPI: This is a 33 year old female that presents to the ER for left lower quadrant abdominal pain. Reports she has been experiencing a pain similar to this for the last month, but acutely worsened today. Denies fever, vomiting, diarrhea, dysuria, hematuria. GENERAL: Well-appearing, well-nourished, and in no acute distress. HEAD: Normocephalic, atraumatic. CHEST: Clear to auscultation. ?No respiratory distress. HEART: Regular rate and rhythm.? NEURO: ?Alert and oriented x3. Patient screened in triage and initial orders placed.? ?Additional care and disposition to be based upon?diagnostic testing and treatment. Related Data Allergies Allergy/AdvReac Type Severity Reaction Status Date / Time No Known Allergies Allergy Verified 05/18/24 11:17 PMFSH Past Medical History Medical History Encounter for insertion of Mirena IUD 05/06/2024 Left lower quadrant pain Dyspepsia Bloating delivery delivered 2016 Surgical History Surgical History History of placement of ear tubes Social History Social History Smoking status: Never smoker Second hand tobacco smoke exposure: No Alcohol intake: current Drinks per week: 1 Substance use: never Substance use type: does not use Do You Feel Safe in your Home?: Yes Lack of Transportation: No Lack of Food: Never True Current Housing: Decline to Answer Concerned About Future Housing: Decline to Answer Difficulty Paying Gas/Electric Bills: Decline to Answer Difficulty Paying for Meds: Decline to Answer Currently Unemployed: Decline to Answer Education: Decline to Answer Difficulty w/ Childcare or Family Care: Decline to Answer Living arrangements: with family 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 Gender identity (if verbalized by the patient): Female Sexual Orientation (if Verbalized by the Patient): Straight or Heterosexual Spiritual care concerns: No Agree to blood products: Yes Course Vital Signs Vital signs: Vital Signs Temperature 98.5 F 06/09/24 14:57 Pulse Rate 83 06/09/24 14:57 Respiratory Rate 16 06/09/24 14:57 Blood Pressure 111/73 06/09/24 14:57 Pulse Oximetry 100 06/09/24 14:57 Oxygen Delivery Room Air 06/09/24 14:57 Temperature 98.5 F 06/09/24 14:57 Pulse Rate 83 06/09/24 14:57 Respiratory Rate 16 06/09/24 14:57 Blood Pressure 111/73 06/09/24 14:57 Pulse Oximetry 100 06/09/24 14:57 Oxygen Delivery Room Air 06/09/24 14:57 Discharge Plan Discharge Instructions: Antibiotic Form Patient Language: Greenlandic Prescriptions: No Action albuterol sulfate 90 mcg/actuation HFA aerosol inhaler 1 inh inhalation Q4H PRN (Reason: shortness of breath or wheezing) Qty: 8.5 0RF fluconazole 150 mg tablet 150 mg PO DAILY Qty: 1 0RF Follow-up/Referrals: UNKNOWN,DOCTOR [Primary Care Provider] -
[2024-06-09 16:08] LABS: Basophils Absolute Auto 0.1 K/mm3 (0.0-0.1); Eosinophils Absolute Auto 0.1 K/mm3 (0-0.3); Eosinophils Percent Auto 1.1 % (0-4.4); Hematocrit 34.9 % (37.0-47.0); Hemoglobin 10.6 g/dL (12.0-15.0); Immature Granulocyte Absolute 0.01 K/mm3 (0.00-0.031); Immature Granulocyte Percent A 0.2 % (0-0.5); Lymphocytes Percent Auto 27.8 % (18.3-44.2); Mean Corpuscular HGB Conc 30.4 g/dl (32-36); Mean Corpuscular Hemoglobin 24.3 pg (26-34); Mean Corpuscular Volume 79.9 fl (80-100); Monocytes Absolute Auto 0.6 K/mm3 (0.1-0.6); Monocytes Percent Auto 9.8 % (2.6-8.5); Neutrophils Absolute Auto 3.7 K/mm3 (1.3-6.7); Neutrophils Percent Auto 60.1 % (45.5-73.1); Platelet Count Result 333 k/mm3 (150-375); Red Blood Count 4.37 M/mm3 (4.2-5.4); Red Cell Distribution Width 13.2 % (11.5-14.5); White Blood Count 6.1 K/mm3 (4.5-10.0)
[2024-06-09 16:19] LABS: Alanine Aminotransferase 12 U/L (6-35); Albumin Level 4.4 g/dL (3.5-5.1); Alkaline Phosphatase 54 U/L (38-126); Anion Gap 7 mmol/L (4-12); Aspartate Amino Transferase 18 U/L (14-36); Bilirubin,Total 0.4 mg/dL (0.2-1.3); Blood Urea Nitrogen 8 mg/dL (7-17); Calcium 9.5 mg/dL (8.4-10.2); Carbon Dioxide 28 mmol/L (22-30); Chloride 104 mmol/L (98-107); Estimated CRCL calculation 107 ml/min; Estimated Glomerular Filt Rate > 60; Glucose 85 mg/dL (65-110); Lipase 44 U/L (23-300); Potassium 4.1 mmol/L (3.4-5.0); Sodium 139 mmol/L (137-145)
[2024-06-09 20:02] LABS: BEDSIDEPREGUCG Negative (Negative)
[2024-06-09 20:04] LABS: Add Urine Microscopic? NO; Appearance Urine Clear (Clear); Bilirubin Urine Negative (Negative); Blood Urine Negative (Negative); Color Urine Yellow (Yellow); Glucose Urine UA Negative (Negative); Ketones Urine Negative (Negative); Leukocyte Esterase Ur Negative LEU/UL (Negative); Nitrate Urine Negative (Negative); Protein Urine Negative (Negative); Specific Grav Ur 1.007 (1.001-1.035); Urobilinogen Urine 0.2 mg/dL (<2.0)
[2024-06-09 20:53] VITALS: BP 120/64; PULSE 71; RESP 18; TEMP 36.7; O2SAT 100
--- NOTE | 2024-06-09 21:12 | ED.ABDPAIN ---
HPI - Abdominal Pain General Chief Complaint: Abdominal Pain Stated Complaint: concern for left inguinal hernia Time Seen by Provider: 06/09/24 15:44 Source: patient Mode of arrival: ambulatory Limitations: no limitations History of Present Illness HPI narrative: 33 YEARS OLD WHITE FEMALE CAME TO THE ED WITH LEFT LOWER QUADRANT PAIN, SHARP, RADIATING TO LEFT LOWER BACK STARTED OVER 1 MONTH AGO, PATIENT WAS SEEN BY HER FAMILY PHYSICIAN AND WAS TOLD POSSIBLE IBS, PATIENT WAS SEEN BY HER OBGYN, PELVIC ULTRASOUND SHOWED NO ACUTE ABNORMALITIES PATIENT WAS SEEN BY ASSIGNMENT DESK EDITOR, COLONOSCOPY SHOWED NO ACUTE ABNORMALITIES. PATIENT BEEN WORKING OUT RECENTLY. PAIN WORSE WITH CERTAIN POSITION AND MOVEMENT, BETTER REMAINING STILL. PATIENT DENIES ANY VAGINAL BLEEDING OR DISCHARGE, SCHEDULED TO SEE HER OBGYN TOMORROW. SHE DENIES ANY FEVER, CHILLS, NAUSEA, VOMITING, DIARRHEA, CONSTIPATION, VAGINAL BLEEDING OR DISCHARGE Related Data Allergies Allergy/AdvReac Type Severity Reaction Status Date / Time No Known Allergies Allergy Verified 05/18/24 11:17 Review of Systems Review of Systems: All systems reviewed & are unremarkable except as noted in HPI and below PMFSH Past Medical History Medical History Encounter for insertion of Mirena IUD 05/06/2024 Left lower quadrant pain Dyspepsia Bloating delivery delivered 2015 Surgical History Surgical History History of placement of ear tubes Social History Social History Smoking status: Never smoker Second hand tobacco smoke exposure: No Alcohol intake: current Drinks per week: 1 Substance use: never Substance use type: does not use Do You Feel Safe in your Home?: Yes Lack of Transportation: No Lack of Food: Never True Current Housing: Decline to Answer Concerned About Future Housing: Decline to Answer Difficulty Paying Gas/Electric Bills: Decline to Answer Difficulty Paying for Meds: Decline to Answer Currently Unemployed: Decline to Answer Education: Decline to Answer Difficulty w/ Childcare or Family Care: Decline to Answer Living arrangements: with family 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 Gender identity (if verbalized by the patient): Female Sexual Orientation (if Verbalized by the Patient): Straight or Heterosexual Spiritual care concerns: No Agree to blood products: Yes Exam Narrative: GENERAL APPEARANCE: WELL-DEVELOPED, WELL-NOURISHED SKIN: NORMAL COLOR HEAD: NORMOCEPHALIC, NONTRAUMATIC EYES: CLEAR CONJUNCTIVA ENT: OROPHARYNX NORMAL, EARS NORMAL, NOSE NORMAL NECK: SUPPLE, NONTENDER CHEST AND RESPIRATORY: AIRWAY PATENT, NO RESPIRATORY DISTRESS, NO ACCESSORY MUSCLE USE HEART: REGULAR RATE/RHYTHM ABDOMEN: SOFT, SLIGHT TENDERNESS LEFT LOWER QUADRANT, NO BRUISES, NO SWELLING NO GUARDING OR REBOUND, NO ORGANOMEGALY, QUIET BOWEL SOUNDS VASCULAR: NORMAL PERIPHERAL PULSES, NORMAL CAPILLARY REFILL. MUSCULOSKELETAL: NORMAL RANGE OF MOTION, NONTENDER BACK NEUROLOGIC: ALERT AND ORIENTED ?3, CHEST PAIN COORDINATOR IS NORMAL TESTED, NO GROSS MOTOR DEFICIT Course Vital Signs Vital signs: Vital Signs Temperature 36.9 C 06/09/24 14:57 Pulse Rate 83 06/09/24 14:57 Respiratory Rate 16 06/09/24 14:57 Blood Pressure 111/73 06/09/24 14:57 Pulse Oximetry 100 06/09/24 14:57 Oxygen Delivery Room Air 06/09/24 14:57 Temperature 36.7 C 06/09/24 20:53 Pulse Rate 71 06/09/24 20:53 Respiratory Rate 18 06/09/24 20:53 Blood Pressure 120/64 06/09/24 20:53 Pulse Oximetry 100 06/09/24 20:53 Oxygen Delivery Room Air 06/09/24 14:57 MDM - Abdominal Pain MDM Narrative Medical decision making narrative: LEFT LOWER QUADRANT PAIN VITAL SIGNS ARE STABLE PHYSICAL EXAMINATION CONSISTENT WITH SLIGHT TENDERNESS LEFT LOWER QUADRANT DIFFERENTIAL DIAGNOSIS INCLUDE URINARY TRACT INFECTION, COLITIS, DIVERTICULITIS, MUSCULAR STRAIN/SPRAIN, KIDNEY STONE BLOOD WORKUP TODAY INCLUDES CBC, CMP, LIPASE SHOWED NO ACUTE ABNORMALITIES URINALYSIS TODAY SHOWED NO EVIDENCE OF INFECTION CT ABDOMEN AND PELVIS WITH IV CONTRAST SHOWED NO ACUTE ABNORMALITIES. MUSCULAR PAIN IS MY CONCERN. PATIENT WILL BE DISCHARGED ON FLEXERIL AND NAPROXEN Differential Diagnosis Differential diagnosis: Likely other ( ABOVE) Lab Data 06/09/24 16:02 06/09/24 16:02 Labs: Lab Results 06/09/24 06/09/24 06/09/24 Range/Units 16:02 19:50 20:00 WBC 6.1 (4.5-10.0) K/mm3 RBC 4.37 (4.2-5.4) M/mm3 Hgb 10.6 L (12.0-15.0) g/dL Hct 34.9 L (37.0-47.0) % MCV 79.9 L (80-100) fl MCH 24.3 L (26-34) pg MCHC 30.4 L (32-36) g/dl RDW 13.2 (11.5-14.5) % Plt Count 333 (150-375) k/mm3 MPV 11.0 H (7.4-10.4) fl Immature Gran % (Auto) 0.2 (0-0.5) % Neut % (Auto) 60.1 (45.5-73.1) % Lymph % (Auto) 27.8 (18.3-44.2) % [place] % (Auto) 9.8 H (2.6-8.5) % Eos % (Auto) 1.1 (0-4.4) % Baso % (Auto) 1.0 (0.2-1.2) % Lymph # (Auto) 1.70 (0.9-3.2) K/mm3 [place] # (Auto) 0.6 (0.1-0.6) K/mm3 Eos # (Auto) 0.1 (0-0.3) K/mm3 Baso # (Auto) 0.1 (0.0-0.1) K/mm3 Abs Immat Gran (auto) 0.01 (0.00-0.031) K/mm3 Absolute Neuts (auto) 3.7 (1.3-6.7) K/mm3 Absolute Nucleated RBC 0.000 (0.0-0.012) K/mm3 Nucleated RBC % 0.0 (0.0-0.2) % Sodium 139 (137-145) mmol/L Potassium 4.1 (3.4-5.0) mmol/L Chloride 104 (98-107) mmol/L Carbon Dioxide 28 (22-30) mmol/L Anion Gap 7 (4-12) mmol/L BUN 8 (7-17) mg/dL Creatinine 0.51 L (0.7-1.0) mg/dL Estim Creat Clear Calc 107 ml/min Estimated GFR > 60 (59 - ) Glucose 85 (65-110) mg/dL Calcium 9.5 (8.4-10.2) mg/dL Total Bilirubin 0.4 (0.2-1.3) mg/dL AST 18 (14-36) U/L ALT 12 (6-35) U/L Alkaline Phosphatase 54 (38-126) U/L Total Protein 7.0 (6.3-8.2) g/dL Albumin 4.4 (3.5-5.1) g/dL Lipase 44 (23-300) U/L Urine Color Yellow (Yellow) Urine Appearance Clear (Clear) Urine pH 7.0 (5.0-9.0) Ur Specific [place] 1.007 (1.001-1.035) Urine Protein Negative (Negative) mg/dL Urine Glucose (UA) Negative (Negative) mg/dL Urine Ketones Negative (Negative) mg/dL Ur Blood (Man) Negative (Negative) Urine Nitrate Negative (Negative) Urine Bilirubin Negative (Negative) Urine Urobilinogen 0.2 (<2.0) mg/dL Leukocyte Esterase Rfl Negative (Negative) HARSHIL/UL POC Urine HCG, Qual Negative (Negative) Imaging Data Radiologist's impression: ITS Impressions Abdomen/Pelvis CT 06/09/24 20:21 IMPRESSION: 1. No etiology for the patient's symptoms. Critical Care Time Critical Care Time Critical Care Time: No Discharge Plan Discharge Clinical Impression: Abdominal pain Patient Disposition: Home, Self-Care Condition: Stable Instructions: Abdominal Pain (ED) Additional Instructions: RETURN IF SYMPTOMS ARE WORSENING , CALL YOUR FAMILY PHYSICIAN FOR APPOINTMENT, TAKE TYLENOL NEEDED FOR ACHES AND PAIN, CONTINUE HOME MEDICATIONS. STAY AWAY FROM STRENUOUS WORKOUT FOR 10 DAYS. Patient Language: Persian Prescriptions: New cyclobenzaprine 10 mg tablet 10 mg PO TID PRN (Reason: muscle spasm) Qty: 20 0RF naproxen [Naprosyn] 500 mg tablet 500 mg PO BID PRN (Reason: pain) Qty: 14 0RF No Action albuterol sulfate 90 mcg/actuation HFA aerosol inhaler 1 inh inhalation Q4H PRN (Reason: shortness of breath or wheezing) Qty: 8.5 0RF fluconazole 150 mg tablet 150 mg PO DAILY Qty: 1 0RF Follow-up/Referrals: UNKNOWN,DOCTOR [Primary Care Provider] -
--- OUTSIDE RECORDS SUMMARY | 2024-06-09 21:24 | XMS_ITS | Encounter Summary ---
Author Organization [facility] Address [address] [place] [address] Care Team Providers Care Marble Cutter Name Role Phone Unavailable Primary Care Provider [...] Description 07/01/2024 8:45 AM CDT Office Visit [facility] Oncology and Hematology - [address] [facility] [address] [place] [address] Jesse Mariee MD [address] [facility] [address] [place] [address] documented as of this encounter Visit Diagnoses Not on filedocumented in this encounter
--- OUTSIDE RECORDS SUMMARY | 2024-06-09 21:24 | XMS_ITS | Data Portability ---
Author Organization [place] - Carla Steinberg [facility], [facility] Address [address] [place] [address] Assessment No assessment recorded. Plan of Treatment [...] By Organization Details Last Modified Time 03/09/2015 [id number] salt water gargl es four times daily, motrin per orientation and mobility instructor labeled directions. Not available 03/09/2015 13:50:29 wait [...] while on medication. 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 Wait and see on the steroids for at least 2 days; use a sinus rinse and take the cough rx. if it is not improving, start and complete the steroid taper. Not available 03/09/2015 13:50:29 Reason for Referral None Reported. Problems Name Problem SNOMED Code Status Onset Date Resolution Date Notes Provider Name and Address Organization Details Recorded Time Swallowing painful 83129714 Active Kenn Beasley MD [address], [place], [address], [place] [facility] 5 13:50:28 Problem Notes None recorded. Medical Equipment None Reported. Allergies Allergen ID Allergen Name Allergen Category Reaction Reaction Severity Criticality Documentation Date Start Date Code Code System Note Provider Name and Address Organization Details Recorded Time 82656 Duricef medicatio n Not available Not available Not available 03/09/2015 53416 6 RxNorm Reta Woodard [facility] 5 13:21:06 Medications Name Sig Start Date [...] % 157.48 cm 26.4 kg/m2 98.2 [degF] 73436.4 01493 g 71 /min 117 mm[Hg] 58 mm[Hg] Reta Woodard [facility] 5 13:20:34 Social History Question Answer Notes LastModified by Organizat ion Details LastModified Time Tobacco Smoking Status Never Smoker Reta Woodard [facility] 03/09/2015 13:21:46 What Is Your Level Of Alcohol Consumption? Occasional [email or web address] Information not available 03/09/2015 Have You Directly Handled Bats, Rodents, Or Primates From Ebola Endemic Areas? No [email or web address] Information not available 03/09/2015 Have You Had Contact With Blood, Bodily Fluids, Or Human Remains Of A Patient Known To Have Or Suspected To Have Ebola Virus Disease? No Information not available 03/09/2015 Residence In/travel To An Area Where Ebola Virus Transmission Is Active (out Of The [facility] In The Past 21 Days). No [email or web address] Information not available 03/09/2015 Sex: Unknown Functional [...] SNOMED-CT Code Diagnosis ICD10 Code Diagnosis Note [id number] Kenn Beasley MD [facility] [address] [place] [address] 03/09/2015 12:57:23 03/09/2015 14:10:19 Swallowing painful 90243063 R13.19 Health Concerns Section Related Observation LastModified by Organization Detai ls LastModified Time None Recorded Concern Status LastModified by Organization Details LastModified Time None Recorded Advance Directives Directive None Recorded Payers Encounter Date Sequence Insurance Name Policy Number Policy Fisher Covered Member ID Fisher Member ID Guarantor Name 03/09/2015 [facility] [employer] [id number] Bishnu Million [id number] Bonny Jasmin Million OBGyn Episode No OBEpisode recorded.
--- OUTSIDE RECORDS SUMMARY | 2024-06-09 21:24 | XMS_ITS | Clinical Summary ---
Author Organization [facility] Anahy linares [facility] Address [address] [address] Care Team Providers Care Polishing Wheel Repairer Name Role Phone Unavailable Primary Care Provider [...] Description 07/01/2024 8:45 AM CDT Office Visit [facility] - [place] [address] [facility] [address] [place] [address] Jesse Mariee MD [address] [facility] [address] [place] [address] Health Maintenance Due Date Last Done Comments DTAP/TDAP/TD VACCINES (1 - Tdap) 2008 HEPATITIS B VACCINES (1 of 3 - 19+ 3-dose series) 2008 CERVICAL CANCER SCREENING 09/05/2019 INFLUENZA VACCINE (#1) 2023 HPV VACCINES Aged Out No longer eligi ble based on patient's age to complete this topic Insurance [facility] BLUE ACCESS CHOICE
--- OUTSIDE RECORDS SUMMARY | 2024-06-09 21:24 | XMS_ITS | Referral Summary ---
Author Organization [facility] Address [address] [place] [address] Care Team Providers Care Document Management Consultant Name Role Phone Kendar Kirby MD Primary Care Provider [phone] Encounters Date Type Department Care Team Description 03/17/2024 6:22 PM HAND OUTSIDE CUTTER - 03/17/2024 8:02 PM HAND OUTSIDE CUTTER Emergency [facility] Emergency Department [address] [place] [address] Virginia Saldana MD Other specified trauma [...] on file Legal Sex Female 6:06 PM HAND OUTSIDE CUTTER Gender Identity Not on file Sexual Orientation Not on file Last Filed Vital Signs Vital Sign Reading Time Taken Comments Blood Pressure 119/77 03/17/2024 7:59 PM HAND OUTSIDE CUTTER Pulse 96 03/17/2024 7:59 PM HAND OUTSIDE CUTTER Temperature 36.9 C (98.4 F) 03/17/2024 6:14 PM HAND OUTSIDE CUTTER Respiratory Rate 18 03/17/2024 7:59 PM HAND OUTSIDE CUTTER Oxygen Saturation 97% 03/17/2024 7:59 PM HAND OUTSIDE CUTTER Inhaled Oxygen Concentration - - Weight 69.8 kg (153 lb 14.1 oz) 03/17/2024 6:14 PM HAND OUTSIDE CUTTER Height 160 cm (5' 3 ) 03/17/2024 6:14 PM HAND OUTSIDE CUTTER Body Mass Index 27.26 03/17/2024 6:14 PM HAND OUTSIDE CUTTER Plan of Treatment Not on file Insurance [facility] ACCESS CHOICE Member Subscriber Plan / Payer (Ef fective 2023-Present) Name:Bonny Arguello Relation to Subscriber:Spouse Name:Bishnu Arguello Date of :1989 Address: [facility] [place] [address] Payer ID:[id number] (NAIC) Type: LIZZIE Address: [facility] [id number] [place] [id number] Care Teams Document Management Consultant Relationship Specialty Start Date End Date Kendra Kirby MD [address] [place] [address] PCP - General Family Medicine 03/17/24
--- OUTSIDE RECORDS SUMMARY | 2024-06-09 21:24 | XMS_ITS | Clinical Summary ---
Author Organization [facility] Address [facility] [place] [address] Care Team Providers Care Jewel Hole Driller Name Role Phone Kendra Kirby MD Primary Care Provider [phone] Allergies No known active allergies Medications lidocaine 5 % gel Apply 1 Application topically every 4 (four) hours as needed (pain) 113 g 4 Active oxyCODONE (ROXICODONE) 5 mg immediate release tabletIndicatio ns:Pain Take 1 tablet (5 mg total) by mouth every 4 (four) hours as needed for pain 12 tablet 4 Active Encounters Date Type Department Care Team Description 03/17/2024 6:22 PM HEEL STIFFENER - 03/17/2024 8:02 PM [facility] Emergency [facility] Emergency Department [address] [place] [address] Virginia Saldana MD Other specified trauma [...] on file Legal Sex Female 6:06 PM HEEL STIFFENER Gender Identity Not on file Sexual Orientation Not on file Last Filed Vital Signs Vital Sign Reading Time Taken Comments Blood Pressure 119/77 03/17/2024 7:59 PM HEEL STIFFENER Pulse 96 03/17/2024 7:59 PM HEEL STIFFENER Temperature 36.9 C (98.4 F) 03/17/2024 6:14 PM HEEL STIFFENER Respiratory Rate 18 03/17/2024 7:59 PM HEEL STIFFENER Oxygen Saturation 97% 03/17/2024 7:59 PM HEEL STIFFENER Inhaled Oxygen Concentration - - Weight 69.8 kg (153 lb 14.1 oz) 03/17/2024 6:14 PM HEEL STIFFENER Height 160 cm (5' 3 ) 03/17/2024 6:14 PM HEEL STIFFENER Body Mass Index 27.26 03/17/2024 6:14 PM HEEL STIFFENER Plan of Treatment Health Maintenance Due Date [...] patient's age to complete this topic Insurance [facility] ACCESS CHOICE Member Subscriber Plan / Payer (Ef fective 2023-Present) Name:Bonny Arguello Relation to Subscriber:Spouse Name:Bishnu Arguello Date of :1989 Address: [address] [place] [address] Payer ID:[id number] (NAIC) Type: ALLIANCE Address: [facility] [id number] [place] [id number] Care Teams Jewel Hole Driller Relationship Specialty Start Date End Date Kendra Kirby MD [address] [place] [address] PCP - General Family Medicine 03/17/24
[2024-06-09 21:47] VITALS: BP 123/66; PULSE 73; RESP 16; O2SAT 99
[2024-06-09 21:48] VITALS: BP 123/66; PULSE 73; RESP 16; O2SAT 99
== END 2024-06-09 21:50 | disposition home or self-care (01) ==
PROVIDERS: Physician Assistant; Emergency Provider Emergency Medicine
DX: R10.32 Left lower quadrant pain (principal)
CPT/HCPCS: 36415; 74177; 80053; 81003; 81025; 83690; 85025; 99284; Q9967

== ENCOUNTER 2024-06-26 08:00 | Emergency (ER) | payer BC, SELFPAY ==
--- NOTE | 2024-06-26 08:05 | ED_ITS ---
HPI - General Adult General Chief complaint: Urogenital-Female Stated complaint: uti Time Seen by Provider: 06/26/24 08:03 Source: patient Mode of arrival: ambulatory Limitations: no limitations History of Present Illness HPI narrative: 33-year-old female patient presents to the [facility] [place] with complaints of urinary symptoms that started yesterday. Patient states she was recently diagnosed with endometriosis this past week. Patient states she noticed that her urine was cloudy about 2 days ago with an odor and yesterday started having some pain with urination, urgency frequency and lower abdominal pain and lower back achiness. Denies any fevers, body aches or chills. Denies any nausea, vomiting or diarrhea. Related Data Allergies Allergy/AdvReac Type Severity Reaction Status Date / Time No Known Allergies Allergy Verified 06/24/24 14:00 Review of Systems Review of Systems: CONSTITUTIONAL: Denies fever, chills, or sweats. EYES: Denies visual changes, redness, or discharge. ENT: Denies rhinorrhea, congestion, sore throat, or otalgia. CARDIOVASCULAR: Denies chest pain, palpitations, or edema. RESPIRATORY: Denies cough or dyspnea. GASTROINTESTINAL: positive lower abdominal pain, denies nausea, vomiting, or diarrhea. GENITOURINARY: Positive dysuria, denies hematuria. SKIN: Denies rash or itching. MUSCULOSKELETAL: positive low back pain, denies joint pain, or myalgia. NEUROLOGIC: Denies headache, numbness, or weakness. PSYCHIATRIC: Denies anxiety or depression. [facility] Past Medical History Medical History Encounter for insertion of Mirena IUD 05/06/2024 Left lower quadrant pain Dyspepsia Bloating delivery delivered 2016 Surgical History Surgical History History of placement of ear tubes Social History Social History Smoking status: Never smoker Second hand tobacco smoke exposure: No Alcohol intake: current Drinks per week: 1 Substance use: never Substance use type: does not use Do You Feel Safe in your Home?: Yes Lack of Transportation: No Lack of Food: Never True Current Housing: Decline to Answer Concerned About Future Housing: Decline to Answer Difficulty Paying Gas/Electric Bills: Decline to Answer Difficulty Paying for Meds: Decline to Answer Currently Unemployed: Decline to Answer Education: Decline to Answer Difficulty w/ Childcare or Family Care: Decline to Answer Living arrangements: with family 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 Gender identity (if verbalized by the patient): Female Sexual Orientation (if Verbalized by the Patient): Straight or Heterosexual Spiritual care concerns: No Agree to blood products: Yes Comments At the time of my signature I agree with nursing past medical history, surgical, social, and family history. There is no relevant family history pertinent to the presenting complaint. Exam Narrative: GENERAL: Well-appearing, well-nourished, and in no acute distress. HEAD: Normocephalic, atraumatic. EYES: PERRLA and EOMI. ENT: Nares clear, no rhinorrhea or epistaxis. Mucous membranes moist. NECK: Supple. No lymphadenopathy CHEST: Clear to auscultation. No respiratory distress. HEART: Regular rate and rhythm. No murmur heard. Normal peripheral pulses. ABDOMEN: Soft, flat, nondistended. No guarding, rebound tenderness, or rigid. No pulsatilla masses. Bowel sounds present in all four quadrants. No organomegaly. Negative Srinivasan?s sign. periumbicial tenderness noted.. No Supra public tenderness or distension. Good femoral pulses bilaterally. No hernia no oliver. No scars or surface trauma. No CVA tenderness on percussion EXTREMITIES: Normal range of motion. No edema. SKIN: Warm, dry, no rash. NEURO: No focal deficits. Alert and oriented x3. Course Course Level of Care: Express Care Visit Vital Signs Vital signs: Vital Signs Temperature 36.6 C 06/26/24 08:11 Pulse Rate 88 06/26/24 08:11 Respiratory Rate 16 06/26/24 08:11 Blood Pressure 125/84 06/26/24 08:11 Pulse Oximetry 100 06/26/24 08:11 Temperature 36.6 C 06/26/24 08:11 Pulse Rate 88 06/26/24 08:11 Respiratory Rate 16 06/26/24 08:11 Blood Pressure 125/84 06/26/24 08:11 Pulse Oximetry 100 06/26/24 08:11 Vital signs reviewed. Medical Decision Making MDM Narrative Medical decision making narrative: notify patient that her urine dip does suggest she most likely does have a UTI. Discussed with her that we will discharge her home with oral antibiotics and she can continue taking [id number] Tylenol and ibuprofen and a Zio as needed for pain. Patient verbalized understanding denies any other questions or concerns at this time. Differential Diagnosis Differential Diagnosis: Differential diagnosis: Uncomplicated lower UTI, uncomplicated UTI, pyelonephritis Vital Signs Vital Signs: Vital Signs Temperature 36.6 C 06/26/24 08:11 Pulse Rate 88 06/26/24 08:11 Respiratory Rate 16 06/26/24 08:11 Blood Pressure 125/84 06/26/24 08:11 Pulse Oximetry 100 06/26/24 08:11 Temperature 36.6 C 06/26/24 08:11 Pulse Rate 88 06/26/24 08:11 Respiratory Rate 16 06/26/24 08:11 Blood Pressure 125/84 06/26/24 08:11 Pulse Oximetry 100 06/26/24 08:11 Critical Care Time Critical Care Time Critical Care Time: No Discharge Plan Discharge Clinical Impression: Urinary tract infection Patient Disposition: Home, Self-Care Condition: Stable Instructions: Antibiotic Form, Urinary Tract Infection in Women (ED) Additional Instructions: We will send a urine culture off to the lab; if the culture identifies an organism that the prescribed antibiotic will not treat, you will receive a phone call from an urgent care staff member and an appropriate antibiotic will be prescribed. -Your symptoms should begin to improve within a day of starting antibiotics. But you should finish all the antibiotic pills you get. Otherwise your infection might come back. -Also recommend: drink more fluid. It might help flush out germs, and it does no harm -Tylenol/ibuprofen prn for pain or fever -Follow-up with your primary care provider for urine recheck or seek ER visit if condition worsens with high fever, nausea, vomiting and severe back pain. Patient Language: Guatemalan Prescriptions: New nitrofurantoin monohyd/m-cryst [Macrobid] 100 mg capsule 100 mg PO Q12H 5 Days Qty: 10 0RF Rx Instructions: must administer with a meal/food Follow-up/Referrals: Kendra Kirby MD [Primary Care Provider] - Time of Disposition: 08:32
[2024-06-26 08:11] VITALS: BP 125/84; PULSE 88; RESP 16; TEMP 36.6; O2SAT 100
[2024-06-26 08:36] LABS: BEDSIDEPREGUCG Negative (Negative); EDUAAPPEAR Cloudy; EDUABILI Negative (Negative); EDUABLOOD 3+ (Negative); EDUACOLOR1 Light/Pale; EDUAGLUCOSE Negative (Negative); EDUAKETONE Negative (Negative); EDUALEUKO 1+ (Negative); EDUANITRATE Negative (Negative); EDUAPH 6.5; EDUAPROTEIN Negative (Negative); EDUAUROBILI 0.2
== END 2024-06-26 08:42 | disposition home or self-care (01) ==
PROVIDERS: Emergency Provider Nurse Practitioner Family; PCP Family Medicine
DX: N39.0 Urinary tract infection, site not specified (principal); B96.20 Unspecified Escherichia coli [E. coli] as the cause of diseases classified elsewhere; N80.9 Endometriosis, unspecified
CPT/HCPCS: 81003; 81025; 87086; 87186; 99213; G0463

== ENCOUNTER 2024-09-09 11:17 | Outpatient (CLI) | payer BC, SELFPAY ==
--- OUTSIDE RECORDS SUMMARY | 2024-09-09 11:20 | XMS_ITS | Clinical Summary ---
[facility] Address [address] [place] [address] Care Team Providers Care Balloon Pilot Name Role Phone Unavailable Primary Care Provider Unavailabl e Allergies No known active allergies Medications OMEPRAZOLE ORAL Take by mouth. Active Active Problems No known active problems Encounters Date Type Department Care Team Description 09/06/2024 External Device Data STL ABSTRACTION Provider, Abstract 08/02/2024 External Device Data ST[facility] ABSTRACTION Provider, Abstract 07/19/2024 External Device Data ST[facility] ABSTRACTION Provider, Abstract 07/06/2024 External Device Data STL ABSTRACTION Provider, Abstract 07/06/2024 External Device Data STL ABSTRACTION Provider, Abstract 06/25/2024 External Device Data STL ABSTRACTION Provider, Abstract 06/24/2024 External Device Data STL ABSTRACTION Provider, Abstract 06/21/2024 External Device Data STL ABSTRACTION Provider, Abstract [...] 12/01/2023 1:17 PM CDT Plan of Treatment Health Maintenance Due Date Last Done Comments Pre-Diabetes and Diabetes Screening 1989 DTAP/TDAP/TD VACCINES (1 - Tdap) 2008 HEPATITIS B VACCINES (1 of 3 - 19+ 3-dose series) 2008 HPV/Cotest (21-29) 2010 CERVICAL CANCER SCREENING 09/05/2019 HPV/Cotest (30-65) 09/05/2019 PAP SMEAR 09/05/2019 INFLUENZA VACCINE (#1) 2023 HPV VACCINES Aged Out No longer eligi ble based on patient's age to complete this topic Insurance [id number] [employer] ACCESS CHOICE
--- OUTSIDE RECORDS SUMMARY | 2024-09-09 11:20 | XMS_ITS | Clinical Summary ---
Author Organization [facility] Address [address] [place] [address] Care Team Providers Care Converting Operator Name Role Phone Kendra Kirby MD Primary Care Provider [phone] Allergies Active Allergy Reactions Criticality Noted Date Comments Cefadroxil Unknown 06/20/2024 Medications lidocaine 5 % gel Apply 1 Application topically every 4 (four) hours as needed (pain) 113 g 4 Active oxyCODONE (ROXICODONE) 5 mg immediate release tabletIndicatio ns:Pain Take 1 tablet (5 mg total) by mouth every 4 (four) hours as needed for pain 12 tablet 4 Active fluconazole (DIFLUCAN) 150 mg tablet Take 1 tablet (150 mg total) by mouth daily 5 Active naproxen (NAPROSYN) 500 mg tablet 5 Active estradioL (ESTRACE) 0.01 % (0.1 mg/gram) vaginal cream INSERT 1 GRAM VAGINALLY EVERY OTHER DAY UNTIL LACERATION IS HEALED 4 Active Active Problems Problem Noted Date Diagnosed Date Swallowing painful 06/20/2024 Dysuria 06/20/2024 Assessment & Plan (06/20/2024 10:39 AM PLATE ROLLER): Urine culture sent today. Suspect due to myofascial pain considering TTP of retropubic muscles. External PFPT order provided. Pelvic and perineal pain 06/20/2024 Assessment & Plan (06/20/2024 10:46 AM PLATE ROLLER): Acute pain likely in setting of ruptured cyst and now improving. Chronic pain likely iso myofascial pain and possible endometriosis. Myofascial pain greatest at RP and LA muscles with L>R. Discussed pelvic floor physical therapy and vaginal icing, ordered provided. Also discussed concern regarding findings c/w endometriosis on exam. Discussed possible contribution to pain and definitive diagnosis of endometriosis occuring with dx lsc. Bonny would like to continue to hormonal IUD and trial PFPT and continue to monitor symptoms. Subcutaneous nodule of abdominal wall 06/20/2024 Assessment & Plan (06/20/2024 10:45 AM PLATE ROLLER): Exam today consistent with fascial thickening, which can be seen with scar tissue but abdominal wall endometrioma is also in differential considering intermittent pain associated with this spot. Patient unsure if pain was ever cyclical - tends to occur in random fashion. Is this was endometrioma, size is small and symptoms relatively well controlled on medical management. Discussed option of pursuing MRI- negative MRI would not rule out small endometrioma but positive can be helpful for more information. Will defer for now. Encounters Date Type Department Care Team Description 06/22/2024 Results Follow-Up [facility] [address] [place] [address] Jennie Shearer MD Urine culture Urine, clean voided 06/20/2024 7:48 AM PLATE ROLLER - 06/20/2024 11:59 PM PLATE ROLLER Hospital Encounter [facility] [address] [place] [address] Dysuria Discharge Disposition: Discharge to home or self care 06/20/2024 7:30 AM PLATE ROLLER Office Visit [facility] Obstetrics and Gynecology [address] [facility] 1[address] [place] [address] Jennie Shearer MD Dysuria (Primary Dx); Pelvic and perineal pain; Subcutaneous nodule of abdominal wall 06/13/2024 Telephone [facility] Obstetrics and Gynecology [address] [facility] 7[address] [place] [address] Tali Keller from Last 3 Months Immunizations Immunization Administration Dates Next Due Tdap 10/09/2015 Social History Tobacco Use Types Packs/Day Years Used Date Smoking Tobacco: Never Tobacco Cessation:Counseling Given: Not Answered Personal Safety Answer Date Recorded Have you ever been in or are you currently in a harmful physical or emotional relationship or is someone making you feel afraid or unsafe? Denies 03/17/2024 Comments No Sex and Gender Information Value Date Recorded Sex Assigned at Not on file Legal Sex Female 6:06 PM PLATE ROLLER Gender Identity Not on file Sexual Orientation Not on file Obstetrics History Last Filed Vital Signs Vital Sign Reading Time Taken Comments Blood Pressure 106/70 06/20/2024 7:26 AM PLATE ROLLER Pulse 69 06/20/2024 7:26 AM PLATE ROLLER Temperature 36.9 C (98.4 F) 03/17/2024 6:14 PM PLATE ROLLER Respiratory Rate 18 03/17/2024 7:59 PM PLATE ROLLER Oxygen Saturation 97% 03/17/2024 7:59 PM PLATE ROLLER Inhaled Oxygen Concentration - - Weight 65.5 kg (144 lb 6.4 oz) 06/20/2024 7:26 A M PLATE ROLLER Height 160 cm (5' 2.99 ) 06/20/2024 7:26 AM PLATE ROLLER Body Mass Index 25.59 06/20/2024 7:26 AM PLATE ROLLER Plan of Treatment Health Maintenance Due Date [...] on patient's age to complete this topic Procedures Procedure Name Priority Date/Time Associated Diagnosis Comments URINE CULTURE Routine 06/20/2024 9:19 AM PLATE ROLLER Dysuria from Last 3 Months Results * Urine culture Urine, clean voided (06/20/2024 9:19 AM PLATE ROLLER) Report Final Report: Less than 100,000 colonies/mL (clinically insignificant growth based on current clinical standards) Organism ([facility] Urine, clean voided 06/20/2024 9:19 AM PLATE ROLLER 06/20/2024 8:34 PM PLATE ROLLER Narrative JUAN BAÑUELOS - 06/22/2024 7:35 AM PLATE ROLLER Testing performed by [facility] ([phone]) Jennie Shearer MD LAB MICROBIOLOGY - GENERAL OR DERABLES Final Result [facility] [address] [facility] Department [place] [address] from Last 3 Months Insurance [employer] Member Subscriber Plan / Payer ( fective 2023-Present) Name:Bonny Arguello Relation to Subscriber:Spouse Name:HEBER ARGUELLO Date of :1989 (Home) Address: [address] [place] [address] Payer ID:[id number] (NAIC) Type:BC ALLIANCE Address: [address] [place] [id number] Care Teams Converting Operator Relationship Specialty Start Date End Date Kendra Kirby MD [address] [place] [address] PCP - General Family Medicine 03/17/24
--- OUTSIDE RECORDS SUMMARY | 2024-09-09 11:20 | XMS_ITS | Data Portability ---
Author Organization [place] [facility], [facility] Address [address] [place] [address] Assessment No assessment recorded. Plan of Treatment [...] By Organization Details Last Modified Time 03/09/2015 [id number] salt water gargl es four times daily, motrin per commercial collector labeled directions. Not available 03/09/2015 13:50:29 wait [...] while on medication. risk for osteopenia with fci use. Wait and see on the steroids for at least 2 days; use a sinus rinse and take the cough rx. if it is not improving, start and complete the steroid taper. Not available 03/09/2015 13:50:29 Reason for Referral None Reported. Problems Name Problem SNOMED Code Status Onset Date Resolution Date Notes Provider Name and Address Organization Details Recorded Time Swallowing painful 04614434 Active Kenn Beasley MD [address], [place], [address], [place] [facility] 5 13:50:28 Problem Notes None recorded. Medical Equipment None Reported. Allergies Allergen ID Allergen Name Allergen Category Reaction Reaction Severity Criticality Documentation Date Start Date Code Code System Note Provider Name and Address Organization Details Recorded Time 33803 Duricef medicatio n Not available Not available Not available 03/09/2015 44134 6 RxNorm Reta Woodard [facility] 5 13:21:06 Medications Name Sig Start Date [...] % 157.48 cm 26.4 kg/m2 98.2 [degF] 57845.4 65081 g 71 /min 117 mm[Hg] 58 mm[Hg] Reta Woodard [facility] 5 13:20:34 Social History Question Answer Notes LastModified by Organizat ion Details LastModified Time Tobacco Smoking Status Never Smoker Anitharicardo Vance [facility] 03/09/2015 13:21:46 Have You Directly Handled Bats, Rodents, Or Primates From Ebola Endemic Areas? No [email or web address] Information not available 03/09/2015 Have You Had Contact With Blood, Bodily Fluids, Or Human Remains Of A Patient Known To Have Or Suspected To Have Ebola Virus Disease? No Information not available 03/09/2015 Residence In/travel To An Area Where Ebola Virus Transmission Is Active (out Of The [place] In The Past 21 Days). No [email or web address] Information not available 03/09/2015 Sex: Unknown Functional Status Question Answer Note LastModified by Organizat ion Details LastModified Time What is your level of alcohol consumption? Occasional [email or web address] Information not available 03/09/2015 Mental Status None recorded. Family History Nothing Reported Notes:none reported Medical History Condition Response Anxiety Disorder Y Diabetes N Seizures/Epilepsy N Hypertension N Gynecological HistoryNo gynecological history recorded. Obstetrics History GPAL:G 0 P 0 0 0 0 Past Encounters Encounter ID Performer Location Encounter Start Date Encounter Closed Date Diagnosis/Indication Diagnosis SNOMED-CT Code Diagnosis ICD10 Code Diagnosis Note [id number] Kenn Beasley MD [facility] [address] [place] [address] 03/09/2015 12:57:23 03/09/2015 14:10:19 Swallowing painful 14068613 R13.19 Health Concerns Section Related Observation LastModified by Organization Detai ls LastModified Time None Recorded Concern Status LastModified by Organization Details LastModified Time None Recorded Advance Directives Directive None Recorded Payers Encounter Date Sequence Insurance Name Policy Number Policy Fisher Covered Member ID Fisher Member ID Guarantor Name 03/09/2015 1 [facility] [id number] Bishnu Million [id number] Bonny Jasmin Million OBGyn Episode No OBEpisode recorded.
--- OUTSIDE RECORDS SUMMARY | 2024-09-09 11:20 | XMS_ITS | Referral Summary ---
Author Organization [facility] Address [address] [place] [address] Care Team Providers Care Web Retailer Name Role Phone Kendra Kirby MD Primary Care Provider Encounters Date Type Department Care Team Description 06/22/2024 Results Follow-Up [facility] [address] [place] [address] Jennie Shearer MD Urine culture Urine, clean voided 06/20/2024 7:48 AM SALES AND LEASING CONSULTANT - 06/20/2024 11:59 PM SALES AND LEASING CONSULTANT Hospital Encounter [facility] [address] [place] [address] Dysuria Discharge Disposition: Discharge to home or self care 06/20/2024 7:30 AM SALES AND LEASING CONSULTANT Office Visit [facility] [address] [facility] 1[address] [place] [address] Jennie Shearer MD Dysuria (Primary Dx); Pelvic and perineal pain; Subcutaneous nodule of abdominal wall 06/13/2024 Telephone [facility] [address] [facility] 7[address] [place] [id number] Tali Keller from Last 3 Months Allergies Active Allergy Reactions Criticality Noted Date Comments Cefadroxil Unknown 06/20/2024 Medications lidocaine 5 % gel Apply 1 Application topically every 4 (four) hours as needed (pain) 113 g 11/28/202 4 Active oxyCODONE (ROXICODONE) 5 mg immediate [...] 06/20/2024 Assessment & Plan (06/20/2024 10:39 AM SALES AND LEASING CONSULTANT): Urine culture sent today. Suspect due to myofascial pain considering TTP of retropubic muscles. External PFPT order provided. Pelvic and perineal pain 06/20/2024 Assessment & Plan (06/20/2024 10:46 AM SALES AND LEASING CONSULTANT): Acute pain likely in setting of ruptured [...] 06/20/2024 Assessment & Plan (06/20/2024 10:45 AM SALES AND LEASING CONSULTANT): Exam today consistent with fascial thickening, which [...] for more information. Will defer for now. Immunizations Immunization Administration Dates Next Due Tdap [...] on file Legal Sex Female 6:06 PM SALES AND LEASING CONSULTANT Gender Identity Not on file Sexual Orientation Not on file Last Filed Vital Signs Vital Sign Reading Time Taken Comments Blood Pressure 106/70 06/20/2024 7:26 AM SALES AND LEASING CONSULTANT Pulse 69 06/20/2024 7:26 AM SALES AND LEASING CONSULTANT Temperature 36.9 C (98.4 F) 03/17/2024 6:14 PM SALES AND LEASING CONSULTANT Respiratory Rate 18 03/17/2024 7:59 PM SALES AND LEASING CONSULTANT Oxygen Saturation 97% 03/17/2024 7:59 PM SALES AND LEASING CONSULTANT Inhaled Oxygen Concentration - - Weight 65.5 kg (144 lb 6.4 oz) 06/20/2024 7:26 A M SALES AND LEASING CONSULTANT Height 160 cm (5' 2.99 ) 06/20/2024 7:26 AM SALES AND LEASING CONSULTANT Body Mass Index 25.59 06/20/2024 7:26 AM SALES AND LEASING CONSULTANT Plan of Treatment Not on file Procedures Procedure Name Priority Date/Time Associated Diagnosis Comments URINE CULTURE Routine 06/20/2024 9:19 AM SALES AND LEASING CONSULTANT Dysuria from Last 3 Months Results * Urine culture Urine, clean voided (06/20/2024 9:19 AM SALES AND LEASING CONSULTANT) Report Final Report: Less than 100,000 colonies/mL (clinically insignificant growth based on current clinical standards) Organism (CLINICALLY INSIGNIFICANT GROWTH JUAN GALAN Urine, clean voided 06/20/2024 9:19 AM SALES AND LEASING CONSULTANT 06/20/2024 8:34 PM SALES AND LEASING CONSULTANT Narrative JUAN GALAN - 06/22/2024 7:35 AM SALES AND LEASING CONSULTANT Testing performed by [facility] ([phone]) us Jennie Shearer MD LAB MICROBIOLOGY - GENERAL OR DERABLES Final Result JUAN GALAN [facility] Department [place] [address] from Last 3 Months Insurance [employer] ACCESS CHOICE [employer] ACCESS CHOICE Care Teams Web Retailer Relationship Specialty Start Date End Date Kendra Kirby MD [address] [place] [address] PCP - General Family Medicine 03/17/24
[2024-09-09 11:35] LABS: Basophils Percent Auto 0.5 % (0.2-1.2); Eosinophils Absolute Auto 0.1 K/mm3 (0-0.3); Hematocrit 47.3 % (37.0-47.0); Hemoglobin 14.9 g/dL (12.0-15.0); Immature Granulocyte Absolute 0.01 K/mm3 (0.00-0.031); Immature Granulocyte Percent A 0.2 % (0-0.5); Lymphocytes Absolute Auto 1.57 K/mm3 (0.9-3.2); Lymphocytes Percent Auto 26.6 % (18.3-44.2); Mean Corpuscular HGB Conc 31.5 g/dl (32-36); Mean Corpuscular Hemoglobin 26.7 pg (26-34); Mean Corpuscular Volume 84.8 fl (80-100); Mean Platelet Volume 10.8 fl (7.4-10.4); Monocytes Absolute Auto 0.5 K/mm3 (0.1-0.6); Monocytes Percent Auto 8.1 % (2.6-8.5); Neutrophils Absolute Auto 3.8 K/mm3 (1.3-6.7); Neutrophils Percent Auto 63.6 % (45.5-73.1); Platelet Count Result 283 k/mm3 (150-375); Red Blood Count 5.58 M/mm3 (4.2-5.4); Red Cell Distribution Width 18.7 % (11.5-14.5); White Blood Count 5.9 K/mm3 (4.5-10.0)
[2024-09-09 11:50] LABS: Iron 114 ug/dL (37-170)
[2024-09-09 12:00] LABS: Percent Iron Saturation 30 % (20-50)
[2024-09-09 12:25] LABS: Ferritin 7.62 ng/mL (6.24-137)
== END 2024-09-09 11:18 | disposition home or self-care (01) ==
LOC: ANHLAB 11:18
PROVIDERS: PCP Family Medicine; Visit Provider Obstetrics & Gynecology
DX: N93.9 Abnormal uterine and vaginal bleeding, unspecified (principal); N92.0 Excessive and frequent menstruation with regular cycle; D50.0 Iron deficiency anemia secondary to blood loss (chronic)
CPT/HCPCS: 36415; 82728; 83540; 83550; 85025